=== PATIENT | female | born 1960 | race Caucasian/White ===

== ENCOUNTER 2017-05-11 19:32 | Inpatient (IN) | payer OTHER ==
[~2017-05-11] VITALS: Ht 165.1 cm; Wt 79.4 kg
[~2017-05-11 19:32] MED LIST: PERCOCET 5-3251 EACH PO
[2017-05-11 19:33] VITALS: BP 105/50
[2017-05-11] MEDS ORDERED: ONDANSETRON HCL4 M2 (19:42)
[2017-05-11] MEDS ORDERED: CIPRO500 MG (19:43)
[2017-05-11 20:05] LABS: BE -14.8 mmol/L (-2 to +3)
[2017-05-11 20:10] LABS: PCO2 18.1 mmHg (35.0-45.0)
[2017-05-11 20:11] LABS: PO2 389.4 mmHg (75.0-100.0)
[2017-05-11 20:20] LABS: MCH 46.7 pg (26.0-34.0); MCHC 38.8 g/dL (28.0-37.0); MCV 120.4 fL (80.0-100.0); MPV 9.9 fl. (7.2-11.1); NUCLEATED RBCS 3 /100WBC; PLATELET COUNT* 105 thou/uL (150-400); RBC 0.57 mil/uL (4.20-5.00); RDW-CV 13.8 % (10.5-14.5); WBC 23.1 thou/uL (4.0-11.0)
[2017-05-11 20:22] LABS: HEMATOCRIT 6.9 % (37.0-47.0); HEMOGLOBIN 2.7 gm/dL (12.0-15.0)
[2017-05-11 20:26] LABS: ANION GAP 23 mmol/L (7-16); BUN 11 mg/dL (7-18); CALCIUM 8.5 mg/dL (8.5-10.1); CHLORIDE 102 mmol/L (98-107); CO2 13 mmol/L (21-32); CREATININE 1.3 mg/dL (0.6-1.3); GLUCOSE 136 mg/dL (70-99); SODIUM 138 mmol/L (136-145)
[2017-05-11 20:29] LABS: URINE COLOR YELLOW
[2017-05-11 20:30] LABS: URINE BLOOD 3+ (Negative); URINE CLARITY SL CLOUDY; URINE GLUCOSE-RANDOM NEGATIVE (Negative); URINE KETONES NEGATIVE (Negative); URINE LEUKOCYTES-REFLEX NEGATIVE (Negative); URINE NITRITE-REFLEX NEGATIVE (Negative); URINE PROTEIN 2+ (Negative); URINE UROBILINOGEN 0.2 E.U./dl (0.2-1.0)
[2017-05-11 20:35] LABS: URINE BILIRUBIN 1+ (Negative)
[2017-05-11 20:36] LABS: ICTOTEST (BILI CONFIRMATORY) Negative (Negative)
[2017-05-11 20:37] LABS: ALBUMIN 2.6 g/dL (3.4-5.0); ALKALINE PHOSPHATASE 96 U/L (46-116); LIPASE 155 U/L (73-393); NT-PRO BRAIN NAT PEPTIDE 118 pg/mL (<300); SGOT 92 U/L (15-37); SGPT 50 U/L (30-65); TOTAL PROTEIN 6.7 g/dL (6.4-8.2); TROPONIN-I LEVEL <0.06 ng/mL (<0.06)
[2017-05-11 20:38] LABS: SQUAMOUS 0-3 Few /LPF (0-3)
[2017-05-11 20:39] LABS: AMORPHOUS URATES Few /LPF (None Seen); CASTS None Seen /LPF (None Seen); MUCUS 0-3 Light strn/LPF (None Seen); URINE RBC 0-2 Rare /HPF (0-2); URINE WBC-REFLEX None Seen /HPF (0-5)
[2017-05-11 20:43] LABS: ABSOLUTE EOSINOPHILS 0.9 thou/uL (0.0-0.7); ABSOLUTE LYMPHOCYTES 6.7 thou/uL (0.8-5.3); ABSOLUTE MONOCYTES 0.7 thou/uL (0.0-1.2); ABSOLUTE NEUTROPHILS 14.8 thou/uL (1.6-8.1); MACROCYTES 1+; METAMYELOCYTES 2 %; PLATELET ESTIMATE DECREASED; POLYCHROMASIA 1+
[2017-05-11 20:44] LABS: MICROCYTES 1+
[2017-05-11 21:02] LABS: AMP/METHAMP Negative (Negative); BARBITURATES POSITIVE (Negative); BENZODIAZEPINES Negative (Negative); COCAINE Negative (Negative); METHADONE Negative (Negative); OPIATES Negative (Negative); PCP Negative (Negative); THC Negative (Negative)
[2017-05-11 21:17] LABS: POTASSIUM 3.4 mmol/L (3.5-5.1); TOTAL BILIRUBIN 2.8 mg/dL (<0.1-1.0)
[2017-05-11 21:28] LABS: INR 1.2
[2017-05-11 21:53] LABS: HEMATOCRIT 5.2 % (37.0-47.0)
[2017-05-11 21:59] LABS: PCO2 18.7 mmHg (35.0-45.0); PO2 257.4 mmHg (75.0-100.0); pH 7.109 (7.340-7.450)
[2017-05-11 22:00] LABS: HCO3 5.8 mmol/L (22.0-26.0)
[2017-05-11 23:24] LABS: BE -23.7 mmol/L (-2 to +3); PCO2 23.5 mmHg (35.0-45.0)
[2017-05-11 23:29] LABS: HCO3 5.5 mmol/L (22.0-26.0); PO2 394.7 mmHg (75.0-100.0)
--- NOTE | 2017-05-11 23:37 | H ---
[address] [address] HISTORY AND PHYSICAL Name: DANIELLE BALL Room: [address] IN M.R.#: [id number] Admission: 05/11/17 Attend Phys: Avni Chowdhury, Discharge: 06/07/17 Date of : 60 Report #: [id number] THIS REPORT FOR: //name// CC: [facility] physician/PCP Meredith Alvarado ER VISIT NOTE AND ICU NOTE HISTORY OF PRESENT ILLNESS: This is a 57-year-old female who was hospitalized at [facility] in the [facility] on 05/09/2017 with pyelonephritis under the care of Dr. Avni Kunz. She was hydrated and given antibiotics, was admitted for further management. She was found to have evidence of sepsis, had a rash associated with ceftriaxone and it was changed to Cipro. She was discharged at approximately 11:30 this morning to go home. Apparently, later this evening, she began to be obtunded and was hypoxic. EMS was summoned and she had an O2 sat in the low 80s. She was given Narcan by EMS, with mild improvement and transported here to the closest facility. She was responsive to verbal stimuli after 2 mg of Narcan by EMS, improved to 98% SpO2 on the CPAP. She had significant altered mental status, minimally responsive and unable to give me much of a history. Her is present. PAST MEDICAL HISTORY: Significant for hiatal hernia with surgery correction in February of this year and history of cholecystectomy. FAMILY HISTORY: Significant for hypertension and obesity. SOCIAL HISTORY: Alcohol use is unknown at this time, is . Her is socially supportive. Former smoker, 30 years, one pack per day. REVIEW OF SYSTEMS: She denies fever, chills, congestion or headache. Somewhat short of breath. Denies abdominal pain, vomiting or diarrhea. Denies burning, urgency or frequency. Denies back pain. Denies tingling. She is weak. A 14-point review of systems is otherwise negative. PHYSICAL EXAMINATION: VITAL SIGNS: At 19:33, blood pressure 105/55, pulse 115, O2 sat was 99% on 15 liters. Weight 200 pounds. HEENT: She appears to have some scleral icterus. 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 Throat and pharynx are clear. Mucous membranes are moist. Head is atraumatic. LUNGS: Decreased breath sounds, without rhonchi or wheezing. CARDIOVASCULAR EXAMINATION: Tachycardic rhythm, without gallop, S3 or S4. ABDOMEN: Soft, obese and nontender. Bowel sounds are normal. EXTREMITIES: Show no cyanosis. Nontender. NEUROLOGIC: She was initially alert, became less responsive and was intubated. DIAGNOSTIC DATA: EKG shows minimal ST-segment [place] [address] HISTORY AND PHYSICAL Name: DANIELLE BALL Room: [address] IN [facility]#: [id number] Admission: 05/11/17 Attend Phys: Avni Chowdhury, Discharge: 06/07/17 Date of : 60 Report #: [id number] leads. Arterial blood gas; pO2 of 389, pCO2 of 18.1. Methemoglobin 2.9, carboxyhemoglobin 0.2. Lactic acid 14.1. Potassium 3.4, CO2 of 13, glucose 136, anion gap is 23. Bilirubin 2.8. AST 92. Albumin 2.6. White count 23.1, hemoglobin 2.7, MCV 120.4 and platelets 105,000. U/A with 2+ protein, 3+ blood, urine bacteria 10-30. A pH on blood gas 7.36, pCO2 is 18.1. Potassium 3.4, sodium 138, BUN 11 and creatinine 1.3. Alkaline phosphatase is 96. Troponin less than 0.06. ProBNP is 118. INR is pending. White count 23,100, hemoglobin 2.7, left shift with 40 segs, 22 bands and 1+ macrocytic cells. Platelets are decreased. C. diff toxin is pending. Urine toxicology is pending. Blood cultures x [address] from [facility] on 05/09/2017 showed multiple reactive lymph nodes; however a lymphoproliferative disorder such as lymphoma or metastatic disease could give a similar appearance. There were 2 small left lower lobe nodules present. Gallbladder was surgical absent. Comorbid conditions include osteoarthritis, sleep apnea, history of anemia, esophageal reflux disease, hypothyroidism and hyperlipidemia. She had a robot-assisted hiatal hernia repair on 03/07/2017, using Da [employer]. She had an upper endoscopy on 08/30/2014. White count on admission to [facility] was 19.3, hemoglobin 11.6 and platelets 247,000. Urinary specific gravity was greater than 1.030 with leukocyte esterase, negative with nitrite-positive urine. Venous lactic acid was 1.9 on admission to [facility]. Again, as above, the patient was dismissed earlier today and seen by Dr. Alvarado in the ER. I participated in the patient's care. I discussed the patient's care with Dr. Mahajan. ASSESSMENT: 1. Gram-negative severe sepsis with disseminated intravascular coagulation. 2. Urinary tract infection with pyelonephritis. 3. Severe sepsis. 4. Thrombocytopenia. 5. Severe anemia, likely hemolytic. 6. Severe lactic acidosis, indicative of severe sepsis. 7. Hypokalemia. 8. Respiratory failure. 9. Hypothermia. 10. Tachycardia. 11. Hypoxic respiratory failure, acute. 12. Altered mental status. 13. Gastroesophageal reflux disease. PLAN: Initially, the plan is to transfer to the [facility] on the [place]. However, if they are unable to accept the patient, we will admit her here after discussion with Dr. Mahajan and Dr. Alvarado. [place] [address] HISTORY AND PHYSICAL Name: DANIELLE BALL Room: [address]#: [id number] Admission: 05/11/17 Attend Phys: Avni Chowdhury, Discharge: 06/07/17 Date of : 60 Report #: [id number] Time spent with critical care for this patient is 1 hour and 40 minutes. plan iv broad spectrum iv antibiotics, if ok with ID, VANC, LEVAQUIN, GENT CONSULT ID., PULM, HEMATOLOGY, INTUBATED IN ER, CENTRAL LINE, IV PRESSORS <ELECTRONICALLY SIGNED> By: Avni Chowdhury MD 05/11/17 2337 2238 [id number] Jaylene Chowdhury MD /nt
[2017-05-11 23:59] VITALS: BP 88/50
[2017-05-12] VITALS (42 sets, daily range): BP systolic 69–160; BP diastolic 41–95
[2017-05-12 00:48] LABS: BASOPHILS 1.3 %
[2017-05-12 00:49] LABS: ABSOLUTE BASOPHILS 0.3 thou/uL (0.0-0.2); ABSOLUTE EOSINOPHILS 0.8 thou/uL (0.0-0.7); ABSOLUTE LYMPHOCYTES 3.8 thou/uL (0.8-5.3); ABSOLUTE MONOCYTES 0.4 thou/uL (0.0-1.2); EOSINOPHILS 3.8 %; LYMPHOCYTES 17.8 %; MCH 41.7 pg (26.0-34.0); MCHC 35.8 g/dL (28.0-37.0); MCV 116.6 fL (80.0-100.0); MONOCYTES 1.9 %; MPV 10.4 fl. (7.2-11.1); NUCLEATED RBCS 6 /100WBC; PLATELET COUNT* 52 thou/uL (150-400); POLYS 75.2 %; RBC 1.39 mil/uL (4.20-5.00); RDW-CV 15.4 % (10.5-14.5); WBC 21.2 thou/uL (4.0-11.0)
[2017-05-12 00:54] LABS: CALCIUM 7.1 mg/dL (8.5-10.1); CREATININE 1.5 mg/dL (0.6-1.3)
[2017-05-12 00:55] LABS: PROTIME 20.1 Seconds (9.20-11.50)
[2017-05-12 01:01] LABS: POTASSIUM 4.2 mmol/L (3.5-5.1)
[2017-05-12 01:02] LABS: HEMATOCRIT 16.2 % (37.0-47.0); HEMOGLOBIN 5.8 gm/dL (12.0-15.0); INR 2.1
[2017-05-12 06:24] LABS: BE -19.3 mmol/L (-2 to +3); PCO2 21.3 mmHg (35.0-45.0); PO2 113.8 mmHg (75.0-100.0)
[2017-05-12 06:30] LABS: HCO3 7.5 mmol/L (22.0-26.0); pH 7.166 (7.340-7.450)
[2017-05-12 10:19] LABS: POTASSIUM 5.6 mmol/L (3.5-5.1)
[2017-05-12 10:21] LABS: CREATININE 2.1 mg/dL (0.6-1.3)
[2017-05-12 10:23] LABS: CALCIUM 6.2 mg/dL (8.5-10.1)
[2017-05-12 10:25] LABS: MAGNESIUM 1.8 mg/dL (1.8-2.4); PHOSPHORUS* 5.9 mg/dL (2.5-4.9)
[2017-05-12 10:37] LABS: INR > 18.0; PROTIME > 210.1 Seconds (9.20-11.50)
--- NOTE | 2017-05-12 12:06 | EKG ---
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
[2017-05-12 15:03] LABS: BE -13.9 mmol/L (-2 to +3); pH 7.326 (7.340-7.450)
[2017-05-12 15:07] LABS: HCO3 10.2 mmol/L (22.0-26.0); PO2 138.6 mmHg (75.0-100.0)
[2017-05-12 15:10] LABS: ABSOLUTE BASOPHILS 0.2 thou/uL (0.0-0.2); ABSOLUTE LYMPHOCYTES 2.6 thou/uL (0.8-5.3); ABSOLUTE MONOCYTES 0.6 thou/uL (0.0-1.2); ABSOLUTE NEUTROPHILS 20.7 thou/uL (1.6-8.1); BASOPHILS 0.7 %; EOSINOPHILS 3.8 %; HEMATOCRIT 29.2 % (37.0-47.0); LYMPHOCYTES 10.4 %; MCH 33.9 pg (26.0-34.0); MCHC 38.1 g/dL (28.0-37.0); MONOCYTES 2.4 %; MPV 9.6 fl. (7.2-11.1); NUCLEATED RBCS 3 /100WBC; PLATELET COUNT* 58 thou/uL (150-400); POLYS 82.7 %; RBC 3.28 mil/uL (4.20-5.00); RDW-CV 14.8 % (10.5-14.5); WBC 25.1 thou/uL (4.0-11.0)
[2017-05-12 15:12] LABS: HEMOGLOBIN 11.1 gm/dL (12.0-15.0); MCV 89.2 fL (80.0-100.0)
[2017-05-12 15:26] LABS: CALCIUM 5.9 mg/dL (8.5-10.1)
[2017-05-12 15:27] LABS: POTASSIUM 4.8 mmol/L (3.5-5.1)
[2017-05-12 15:39] LABS: CREATININE 1.3 mg/dL (0.6-1.3)
[2017-05-12 15:44] LABS: PROTIME > 210.1 Seconds (9.20-11.50)
[2017-05-12 15:45] LABS: INR > 18.0
[2017-05-12 16:12] LABS: CREATININE 1.7 mg/dL (0.6-1.3)
[2017-05-12 16:13] LABS: CALCIUM 5.6 mg/dL (8.5-10.1)
[2017-05-12 16:20] LABS: HEMATOCRIT 28.7 % (37.0-47.0); HEMOGLOBIN 11.1 gm/dL (12.0-15.0)
[2017-05-12 16:21] LABS: POTASSIUM 4.8 mmol/L (3.5-5.1)
[2017-05-12 16:54] LABS: INR > 18.0; PROTIME > 210.1 Seconds (9.20-11.50)
[2017-05-12 20:56] LABS: HEMATOCRIT 26.3 % (37.0-47.0); HEMOGLOBIN 10.7 gm/dL (12.0-15.0); MCH 34.9 pg (26.0-34.0); MCHC 40.5 g/dL (28.0-37.0); MCV 86.2 fL (80.0-100.0); MPV 8.5 fl. (7.2-11.1); RBC 3.05 mil/uL (4.20-5.00); RDW-CV 15.4 % (10.5-14.5)
[2017-05-12 21:06] LABS: POTASSIUM 3.4 mmol/L (3.5-5.1)
[2017-05-12 21:07] LABS: CALCIUM 5.6 mg/dL (8.5-10.1)
[2017-05-12 21:11] LABS: PROTIME > 210.1 Seconds (9.20-11.50)
[2017-05-12 21:12] LABS: INR > 18.0
[2017-05-12 21:15] LABS: CREATININE 1.4 mg/dL (0.6-1.3)
[2017-05-13] VITALS (33 sets, daily range): BP systolic 81–132; BP diastolic 46–78
[2017-05-13 03:31] LABS: INR > 18.0; PROTIME > 210.1 Seconds (9.20-11.50)
[2017-05-13 04:05] LABS: ABSOLUTE BASOPHILS 0.1 thou/uL (0.0-0.2); ABSOLUTE EOSINOPHILS 1.6 thou/uL (0.0-0.7); ABSOLUTE LYMPHOCYTES 3.2 thou/uL (0.8-5.3); ABSOLUTE MONOCYTES 0.4 thou/uL (0.0-1.2); BASOPHILS 0.5 %; EOSINOPHILS 6.4 %; HEMOGLOBIN 11.1 gm/dL (12.0-15.0); LYMPHOCYTES 13.3 %; MCH 36.1 pg (26.0-34.0); MCHC 42.6 g/dL (28.0-37.0); MCV 84.9 fL (80.0-100.0); MONOCYTES 1.5 %; MPV 9.8 fl. (7.2-11.1); NUCLEATED RBCS 7 /100WBC; PLATELET COUNT* 57 thou/uL (150-400); POLYS 78.3 %; RBC 3.07 mil/uL (4.20-5.00); RDW-CV 15.1 % (10.5-14.5); WBC 24.4 thou/uL (4.0-11.0)
[2017-05-13 05:35] LABS: BE -1.4 mmol/L (-2 to +3); HCO3 22.8 mmol/L (22.0-26.0); pH 7.419 (7.340-7.450)
[2017-05-13 06:23] LABS: TROPONIN-I LEVEL 3.23 ng/mL (<0.06)
[2017-05-13 07:03] LABS: CREATININE 2.5 mg/dL (0.6-1.3); POTASSIUM 3.3 mmol/L (3.5-5.1)
[2017-05-13 07:06] LABS: BUN 19.2 mg/dL (7-18)
[2017-05-13 07:07] LABS: TOTAL BILIRUBIN 10.9 mg/dL (<0.1-1.0)
[2017-05-13 07:08] LABS: ALBUMIN 2.4 g/dL (3.4-5.0); TOTAL PROTEIN 4.8 g/dL (6.4-8.2)
[2017-05-13 07:09] LABS: CALCIUM 5.8 mg/dL (8.5-10.1)
[2017-05-13 07:17] LABS: MAGNESIUM 1.4 mg/dL (1.8-2.4)
--- NOTE | 2017-05-13 11:28 | CON ---
[address] [address] CONSULTATION Name: DANIELLE BALL Room: [address] IN M.R.#: [id number] Admission: 05/11/17 Attend Phys: Avni Chowdhury, Discharge: 06/07/17 Date of : 60 Report #: [id number] THIS REPORT FOR: //name// CC: [facility] physician/PCP Avni Chowdhury DATE OF SERVICE: 05/12/2017 TYPE OF CONSULTATION: Infectious Disease ATTENDING PHYSICIAN: Avni Chowdhury MD REASON FOR EVALUATION: Septic shock, DIC, likely hemolytic anemia. HISTORY OF PRESENT ILLNESS: Chart reviewed, the patient examined. This is a 57-year-old female without significant medical history who presented in extremis from home, although she had been hospitalized in different facility, was diagnosed with a complicated urinary tract infection, in fact had been discharged within 6 hours prior to presenting to the Emergency Room. It is known that she developed what appears to be hypersensitivity reaction to ceftriaxone in the hospital, she was discharged on Cipro. Shortly thereafter, apparently taking a single dose, she developed acute psychosis with intermittent levels of consciousness. On evaluation in the Emergency Room, she was found to have markedly elevated lactic acid greater than 14 and profoundly low hemoglobin at 2.7, this actually dropped to 2.0, hematocrit of initially 6.9. White count was 23.1, platelets were 105. There was some eosinophilia as well as lymphocytosis. Fibrinogen initially was 429. Chest x-ray was otherwise unremarkable. Creatinine was normal and total bilirubin of 2.8, mildly elevated hepatic transaminases. CT abdomen and pelvis showed suspected hepatic cysts, splenomegaly. CT neck showed some cervical adenopathy. Repeat fibrinogen had dropped from 429 to 146. She is intubated, seen in the ICU and she still has lactic acidemia at 12. Blood cultures are sterile thus far. She was given a dose of vancomycin and gentamicin. ALLERGIES: Listed to CEFTRIAXONE. CURRENT MEDICATIONS: Include vancomycin and propofol. PAST MEDICAL HISTORY: Known hiatal hernia, previous cholecystectomy. SOCIAL HISTORY: Former smoker. No ethanol. FAMILY HISTORY: Noncontributory. REVIEW OF SYSTEMS: [place] [address] CONSULTATION Name: DANIELLE BALL Room: [address]#: [id number] Admission: 05/11/17 Attend Phys: Avni Chowdhury, Discharge: 06/07/17 Date of : 60 Report #: [id number] PHYSICAL EXAMINATION: GENERAL: She is sedated, maintained on the vent. She is in a recumbent position, multiple tubes and catheters. She is not responsive. VITAL SIGNS: Temperature is 100.2, pulse 88, respirations 20, blood pressure 85/64. She is on dopamine. LUNGS: Somewhat diminished, otherwise clear. HEART: Seemed to be irregular, borderline tachycardic. I do not appreciate a murmur. ABDOMEN: Soft. There are no overt peritoneal signs. GENITOURINARY AND RECTAL: Deferred. Peripheral evidence of endocarditis. LABORATORY DATA: As described above. Blood cultures are sterile thus far. Most recent lactic acid is 4.0. Electrolytes: Sodium 138, potassium 5.6, felt to be hemolyzed specimen, chloride 104, and bicarbonate is 10. Anion gap is 24, BUN and creatinine 16 and 2.1. Amylase is 268. Estimated GFR of 24. Followup x-ray showed mild right-sided atelectasis. ASSESSMENT AND PLAN: Profound anemia, on an acute basis, likely DIC, may well have significant hemolysis, cannot exclude infectious cause, although she had extensive workup in the hospital just prior to this, presumed to have a urinary tract infection and was deemed stable enough to go home on oral antibiotics. I think in all likelihood, this is an adverse drug effect, perhaps due to the ciprofloxacin, certainly would avoid the quinolones. She has certainly experienced other multiorgan dysfunction, at this point, continue efforts to support her. Followup urinalysis was fairly unremarkable, glycoside since creatinine increased 1.3-2.1, most likely not directly related to the glycoside. We will continue the vancomycin. Await culture results. Thank you we will follow. <ELECTRONICALLY SIGNED> By: Сергей Barraza MD 05/13/17 1128 1132 [id number] Barraza MD /nt
--- NOTE | 2017-05-13 13:16 | CON ---
[address] [address] CONSULTATION Name: DANIELLE BALL Room: [address] IN M.R.#: [id number] Admission: 05/11/17 Attend Phys: Avni Chowdhury, Discharge: 06/07/17 Date of : 60 Report #: [id number] THIS REPORT FOR: //name// CC: [facility] physician/PCP Avni Chowdhury DATE OF SERVICE: 05/12/2017 CHIEF COMPLAINT: Respiratory failure. HISTORY OF PRESENT ILLNESS: The patient is a 57-year-old female whose information is taken from the current chart. Historically, it appears that [facility] what was presumed to be a urinary tract infection. She received Cipro as an antibiotic. She went home and did not feel well. As a result, she presented to the Emergency Room here with a chief complaint of altered mental status. She was initially hypoxemic with O2 saturations less than 70%. She was placed on BiPAP therapy. She was immediately resuscitated in the form of altered mental status, had to be intubated. She is transferred to the Intensive Care Unit. She was found to have significant numerous abnormal labs. See below. PAST MEDICAL HISTORY: Significant for recurrent UTIs, hiatal hernia, cholecystectomy. ALLERGIES: NOW INCLUDE CIPRO/QUINOLONE DRUGS. SOCIAL HISTORY: Not available. FAMILY HISTORY: Not available. REVIEW OF SYSTEMS: Not obtainable. The patient is intubated and sedated. PHYSICAL EXAMINATION: GENERAL APPEARANCE: The patient is intubated. She is on Levophed IV fluids. She is also getting IV propofol as a sedative type drip. A dialysis catheter has been inserted. She is currently getting hemodialysis as a result of an anuric state. The patient is sedated, intubated. Yanes catheter is inserted. SCD cuffs are in place. She has no G-tube. Hemodialysis catheter. A 57-year-old female who is markedly jaundiced. CURRENT VITAL SIGNS: Reveal blood pressure 99/71. Her mean arterial pressure 71, pulse rate 96 and regular, respiratory rate 27, temperature 100.2 degrees. Her weight is 203 pounds. HEENT: Head is atraumatic. Eyes: Pupils are round, equal and reactive. Sclerae are icteric at this time. Oral cavity appears moist at this time. NECK: No adenopathy. CHEST: Reveals coarse breath sounds, [place] [address] CONSULTATION Name: DANIELLE BALL Room: [address]#: [id number] Admission: 05/11/17 Attend Phys: Avni Chowdhury, Discharge: 06/07/17 Date of : 60 Report #: [id number] CARDIOVASCULAR: Regular rhythm. ABDOMEN: Obese without organomegaly or tenderness. EXTREMITIES: There is no edema. SKIN: No skin rashes. NEUROLOGIC: The patient is sedated, although withdraws from pain. LABORATORY DATA: Her initial hemoglobin on admission was 2.7, with a hematocrit of 6.9, white count was 23,000, platelets were estimated as decreased. Shortly thereafter, repeat H and H were performed, it was 2.0. She did receive some blood products on 05/12/2017 at 12:20 a.m. Hemoglobin was 5.8 and today at 1554, her hemoglobin is 11.1. The patient has received approximately a total of 6 units of packed red cells. She also received 3 FFP units. Drug screen was positive for barbiturates. Today at 1554, her electrolytes reveal sodium 139, potassium 4.8, chloride 102, CO2 of 15, BUN of 21, creatinine 1.7, glucose 129. EGFR 31. Her initial bilirubin was 2.8. ProBNP 118. Troponin is 0.06. Her most recent arterial blood gas at 1450 p.m. today was 7.33, pCO2 of 20, pO2 of 139, bicarbonate of 10, while on CMV of 14, tidal volume of 500, PEEP of 5, this is on 50% FiO2. She is on a bicarbonate drip. IMAGING STUDIES: CTA of the chest revealed a pericardial fluid of a limited nature. Negative for any evidence of pulmonary infarct. There were no lesions. Head was negative for any intracranial hemorrhaging. ASSESSMENT: 1. Acute hemolysis, resulting in abnormal labs as outlined above. 2. Hyperbilirubinemia secondary to the above. 3. Acute respiratory insufficiency requiring intubation. 4. ACUTE ALLERGIC REACTION TO QUINOLONE DRUGS, most likely. RECOMMENDATION: Follow up ABGs. Chest x-ray will need to be obtained to determine the position of the endotracheal tube. Initiate aerosol treatments. Hematology has been consulted. Steroids may be warranted at some point based on their decision regarding treatment of the hemolysis condition. The patient has been cultured up, follow those. Continue with current medical regimen otherwise. Follow up x-ray in the a.m. along with arterial blood gases as well. <ELECTRONICALLY SIGNED> By: Sanna Romo MD 05/13/17 1316 1849 [id number] Pride MD /nt
--- NOTE | 2017-05-13 13:48 | CON ---
[address] [address] CONSULTATION Name: DANIELLE BALL Room: [address] IN M.R.#: [id number] Admission: 05/11/17 Attend Phys: Avni Chowdhury, Discharge: 06/07/17 Date of : 60 Report #: [id number] THIS REPORT FOR: //name// CC: [facility] physician/PCP Avni Chowdhury DATE OF SERVICE: 05/12/2017 REQUESTING PHYSICIAN: Daniel Navarro DO. REASON FOR CONSULTATION: Severe acidosis and acute kidney injury. HISTORY OF PRESENT ILLNESS: The patient is a 57-year-old female with medical history significant for some gastritis and GERD. She apparently developed some symptoms of upper respiratory infection, not feeling well for 5 days prior to admission, was getting progressively worse, finally developed intractable nausea, vomiting, [facility]. Over there, they diagnosed her with urinary tract infection, pyelonephritis, gave her one dose of IV Rocephin and sent her home on p.o. ciprofloxacin. She was doing fine after the first dose of ciprofloxacin, shortly after that she developed some weakness, not feeling well, became unresponsive, was brought to the Emergency Room here, was found to have hemoglobin of 2 and her creatinine was 1.3, but she became anuric, went up to 15 and 21, potassium is 5.6. She had a pH of 7.10 dropped to 6.66. She is on bicarb drip, it is up to 7.16, but she is not making any urine and potassium is going up. She is acidotic, fluid overloaded and I was consulted. PAST MEDICAL HISTORY: GERD and overweight. SOCIAL HISTORY: No tobacco or alcohol abuse. MEDICATIONS: Prior to admission, none. Occasionally takes some PPIs. FAMILY HISTORY: No history of renal disease. REVIEW OF SYSTEMS: The patient is intubated, unresponsive. PHYSICAL EXAMINATION: VITAL SIGNS: Blood pressure 108/75, heart rate 93, respiratory rate 29, temperature 37.9. HEENT: Pupils round. NECK: Fatty. LUNGS: Coarse breath sounds. CARDIOVASCULAR: No rub. ABDOMEN: Obese. LOWER EXTREMITIES: [place] [address] CONSULTATION Name: DANIELLE BALL Room: [address]#: [id number] Admission: 05/11/17 Attend Phys: Avni Chowdhury, Discharge: 06/07/17 Date of : 60 Report #: [id number] LABORATORY REPORT: [place] [address], hemoglobin after transfusion is 5.2 and her platelet count is 52. Her INR is more than 18. Her PT is more than 210. Hematology, Dr. Mahajan examined the patient and his impression was hemolytic anemia, most likely due to a reaction to ciprofloxacin. From my standpoint, she has acute kidney injury. She is anuric. She is acidotic. She is fluid overloaded. She is developing hyperkalemia. She needs to have urgent dialysis; however, her INR is more than 18 now, so we are going to give her fresh frozen plasma and recheck it and if INR allows dialysis line, place dialysis line and put her on dialysis. Thank you very much for asking my opinion on acute kidney injury, hyperkalemia, metabolic acidosis in this patient. This is a critical patient. More than 1 hour spent. <ELECTRONICALLY SIGNED> By: Indiana Baxter MD 05/13/17 1348 1508 [id number] Garcia MD /[facility]
[2017-05-13 13:49] LABS: ALBUMIN 2.3 g/dL (3.4-5.0)
[2017-05-13 14:14] LABS: CALCIUM 6.5 mg/dL (8.5-10.1); CREATININE 2.2 mg/dL (0.6-1.3); PHOSPHORUS* 3.5 mg/dL (2.5-4.9)
[2017-05-13 14:17] LABS: POTASSIUM 3.8 mmol/L (3.5-5.1)
[2017-05-13 14:18] LABS: MPV 9.8 fl. (7.2-11.1); NUCLEATED RBCS 14 /100WBC; PLATELET COUNT* 60 thou/uL (150-400); RDW-CV 15.5 % (10.5-14.5)
[2017-05-13 14:45] LABS: POTASSIUM 3.6 mmol/L (3.5-5.1)
[2017-05-13 15:05] LABS: HEMOGLOBIN 8.9 gm/dL (12.0-15.0); RBC 3.03 mil/uL (4.20-5.00); WBC 26.9 thou/uL (4.0-11.0)
[2017-05-13 15:06] LABS: HEMATOCRIT 25.2 % (37.0-47.0); MCV 83.3 fL (80.0-100.0)
[2017-05-13 15:07] LABS: MCH 29.4 pg (26.0-34.0); MCHC 35.3 g/dL (28.0-37.0)
[2017-05-13 15:11] LABS: ABSOLUTE EOSINOPHILS 2.4 thou/uL (0.0-0.7); ABSOLUTE LYMPHOCYTES 1.1 thou/uL (0.8-5.3); ABSOLUTE NEUTROPHILS 23.4 thou/uL (1.6-8.1); METAMYELOCYTES 3 %
[2017-05-13 15:12] LABS: LARGE PLATELETS FEW; PLATELET ESTIMATE DECREASED
[2017-05-13 15:13] LABS: ANISOCYTOSIS 1+
[2017-05-13 16:05] LABS: CREATININE 2.6 mg/dL (0.6-1.3)
[2017-05-13 16:06] LABS: CALCIUM 6.1 mg/dL (8.5-10.1); TOTAL BILIRUBIN 7.9 mg/dL (<0.1-1.0); TOTAL PROTEIN 4.7 g/dL (6.4-8.2)
[2017-05-13 16:07] LABS: ALBUMIN 2.2 g/dL (3.4-5.0)
--- NOTE | 2017-05-13 16:09 | EKG ---
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: : 1960 Requested By: Frances Case Order Number: [id number] Dianelys MD: Rhys Dukes Measurements Intervals [place] Rate: 97 P: 87 AR: 134 QRS: -7 QRSD: 87 T: 34 QT: 374 QTc: 475 Interpretive Statements Sinus rhythm Low voltage, extremity and precordial leads Compared to ECG 05/11/2017 20:06:41 Low QRS voltage now present Electronically Signed On 05-13-2017 16:08:44 RISK AND INSURANCE CONSULTANT by Rhys Dukes [email or web address] <ELECTRONICALLY SIGNED> By: Rhys Dukes MD, [facility] 05/13/17 1608 1243 1243 Rhys Dukes MD, [facility] /EPI
[2017-05-13 21:58] LABS: INR 2.1; PROTIME 23.8 Seconds (9.20-11.50)
[2017-05-14] VITALS (37 sets, daily range): BP systolic 86–153; BP diastolic 50–87
[2017-05-14 01:03] LABS: INR 1.5
[2017-05-14 01:06] LABS: PROTIME 18.3 Seconds (9.20-11.50)
[2017-05-14 04:00] LABS: HEMOGLOBIN 8.3 gm/dL (12.0-15.0); MCV 85.1 fL (80.0-100.0); MPV 11.9 fl. (7.2-11.1); NUCLEATED RBCS 16 /100WBC; PLATELET COUNT* 68 thou/uL (150-400); RBC 2.89 mil/uL (4.20-5.00); RDW-CV 15.2 % (10.5-14.5); WBC 26.5 thou/uL (4.0-11.0)
[2017-05-14 04:07] LABS: HEMATOCRIT 24.6 % (37.0-47.0); MCH 28.7 pg (26.0-34.0); MCHC 33.8 g/dL (28.0-37.0)
[2017-05-14 04:31] LABS: CREATININE 3.3 mg/dL (0.6-1.3); DIRECT BILIRUBIN 5.2 mg/dL (<0.1-0.3); MAGNESIUM 1.7 mg/dL (1.8-2.4); TOTAL BILIRUBIN 7.8 mg/dL (<0.1-1.0)
[2017-05-14 04:32] LABS: ALBUMIN 2.4 g/dL (3.4-5.0); TOTAL PROTEIN 5.2 g/dL (6.4-8.2)
[2017-05-14 04:59] LABS: ABSOLUTE EOSINOPHILS 1.6 thou/uL (0.0-0.7); ABSOLUTE LYMPHOCYTES 1.3 thou/uL (0.8-5.3); ABSOLUTE MONOCYTES 0.8 thou/uL (0.0-1.2); ABSOLUTE NEUTROPHILS 22.8 thou/uL (1.6-8.1); ANISOCYTOSIS 1+; PLATELET ESTIMATE DECREASED; POIKILOCYTOSIS 1+
[2017-05-14 06:34] LABS: BE 7.3 mmol/L (-2 to +3); HCO3 31.9 mmol/L (22.0-26.0); PCO2 46.7 mmHg (35.0-45.0); PO2 79.2 mmHg (75.0-100.0); pH 7.453 (7.340-7.450)
[2017-05-14 14:22] LABS: POTASSIUM 4.2 mmol/L (3.5-5.1)
[2017-05-14 14:46] LABS: CREATININE 2.6 mg/dL (0.6-1.3)
[2017-05-14 14:48] LABS: CALCIUM 6.7 mg/dL (8.5-10.1)
[2017-05-14 15:42] LABS: INR 1.4; PROTIME 17.5 Seconds (9.20-11.50)
[2017-05-14 16:30] LABS: MCH 29.5 pg (26.0-34.0); MCV 83.3 fL (80.0-100.0); RBC 2.88 mil/uL (4.20-5.00); RDW-CV 14.9 % (10.5-14.5); WBC 28.7 thou/uL (4.0-11.0)
--- NOTE | 2017-05-14 18:17 | 2DMMODE ---
[place] [address] 2 D/M-MODE ECHOCARDIOGRAM Name: DANIELLE BALL Room: [address] IN [facility]#: [id number] Admission: 05/11/17 Attend Phys: Avni Mesa Discharge: 06/07/17 Date of : 60 Date of Service: 05/14/17 1816 Report #: [id number] THIS REPORT FOR: //name// APPROVED REPORT Study performed: 05/13/2017 12:26:14 EXAM: Comprehensive 2D, Doppler, and color-flow Echocardiogram Patient Location: In-Patient Room #: 006 Status: routine BSA: 1.93 HR: 98 bpm BP: 91/47 mmHg Rhythm: NSR Other Information Study Quality: Good Indications Sepsis 2D Dimensions LVEF(%): 78.72 (>50%) IVSd: 12.23 (7-11mm) LVOT Diam: 20.95 (18-24mm) LVDd: 46.81 mm PWd: 13.42 (7-11mm) Ascending Ao: 30.34 (22-36mm) LVDs: 24.66 (25-40mm) Aortic Root: 28.46 mm Rosas's LVEF: 78.72 % Volumes Left Atrial Volume (Systole) LA ESV Index: 28.50 mL/m2 Aortic Valve AoV Peak Immanuel.: 1.91 m/s AO Peak Gr.: 14.54 mmHg LVOT Max P.82 mmHg AO Mean Gr.: 7.70 mmHg LVOT Mean P.00 mmHg LVOT Max V: 1.31 m/s AO V2 VTI: 29.50 cm LVOT Mean V: 0.78 m/s DANO (VTI): 2.69 cm2 LVOT V1 VTI: 23.03 cm Mitral Valve E/A Ratio: 1.10 [place] [address] 2 D/M-MODE ECHOCARDIOGRAM Name: DANIELLE BALL Room: [address]R.#: [id number] Admission: 05/11/17 Attend Phys: Avni Mesa Discharge: 06/07/17 Date of : 60 Date of Service: 05/14/17 1816 Report #: [id number] MV Decel. Time: 176.12 ms MV E Max Immanuel.: 0.79 m/s MV PHT: 51.07 ms MVA (PHT): 4.31 cm2 TDI E/Lateral E': 6.08 E/Medial E': 7.90 Medial E' Immanuel.: 0.10 m/s Lateral E' Immanuel.: 0.13 m/s Pulmonary Valve PV Peak Immanuel.: 1.27 m/s PV Peak Gr.: 6.46 mmHg Tricuspid Valve TR Peak Gr.: 32.25 mmHg RVSP: 37.00 mmHg Left Ventricle The left ventricle is normal size. There is normal LV segmental wall motion. There is normal left ventricular wall thickness Left ventricular systolic function is normal. The left ventricular ejection fraction is within the normal range. LVEF is 60-65%. The left ventricular diastolic function is normal. Right Ventricle The right ventricle is normal size. The right ventricular systolic function is normal. Atria The left atrium size is normal. The right atrium size is normal. Aortic Valve The aortic valve is normal in structure. No aortic regurgitation is present. There is no aortic valvular stenosis. Mitral Valve The mitral valve is normal in structure. Trace mitral regurgitation. No evidence of mitral valve stenosis. Tricuspid Valve The tricuspid valve is normal in structure. Mild tricuspid regurgitation. The RVSP is 35-40 mmHg. Pulmonic Valve The pulmonary valve is normal in structure. [place] [address] 2 D/M-MODE ECHOCARDIOGRAM Name: DANIELLE BALL Room: [address] IN M.R.#: [id number] Admission: 05/11/17 Attend Phys: Avni Mesa Discharge: 06/07/17 Date of : 60 Date of Service: 05/14/17 1816 Report #: [id number] Great Vessels The aortic root is normal in size. IVC is normal in size and collapses with >50% inspiration Pericardium There is no pericardial effusion. <Conclusion> The left ventricle is normal size. There is normal left ventricular wall thickness Left ventricular systolic function is normal. The left ventricular ejection fraction is within the normal range. LVEF is 60-65%. The left ventricular diastolic function is normal. The right ventricle is normal size. The left atrium size is normal. The aortic valve is normal in structure. The mitral valve is normal in structure. Trace mitral regurgitation. The tricuspid valve is normal in structure. Mild tricuspid regurgitation. The RVSP is 35-40 mmHg. IVC is normal in size and collapses with >50% inspiration There is no pericardial effusion. There is normal LV segmental wall motion. <ELECTRONICALLY SIGNED> By: Rhys Dukes MD, FACC 05/14/171815 15 15 Rhys Dukes MD, FACC /INF
[2017-05-14 18:20] LABS: HEMOGLOBIN 8.5 gm/dL (12.0-15.0)
[2017-05-14 18:24] LABS: MCHC 35.4 g/dL (28.0-37.0)
[2017-05-14 20:26] LABS: POTASSIUM 4.4 mmol/L (3.5-5.1)
[2017-05-14 21:30] LABS: MCV 83.2 fL (80.0-100.0); MPV 10.1 fl. (7.2-11.1); RBC 2.95 mil/uL (4.20-5.00); RDW-CV 15.2 % (10.5-14.5); WBC 27.2 thou/uL (4.0-11.0)
[2017-05-14 21:46] LABS: CREATININE 2.3 mg/dL (0.6-1.3)
[2017-05-14 21:54] LABS: CALCIUM 7.4 mg/dL (8.5-10.1)
[2017-05-14 22:41] LABS: HEMOGLOBIN 8.5 gm/dL (12.0-15.0)
[2017-05-14 22:45] LABS: HEMATOCRIT 24.5 % (37.0-47.0)
[2017-05-14 22:46] LABS: MCH 28.8 pg (26.0-34.0)
[2017-05-14 22:47] LABS: MCHC 34.8 g/dL (28.0-37.0)
[2017-05-15] VITALS (36 sets, daily range): BP systolic 88–139; BP diastolic 51–86
[2017-05-15 01:23] LABS: POTASSIUM 4.6 mmol/L (3.5-5.1)
[2017-05-15 01:24] LABS: CREATININE 2.1 mg/dL (0.6-1.3)
[2017-05-15 01:25] LABS: CALCIUM 7.6 mg/dL (8.5-10.1); MAGNESIUM 1.8 mg/dL (1.8-2.4); PHOSPHORUS* 3.2 mg/dL (2.5-4.9)
[2017-05-15 04:04] LABS: BE 6.3 mmol/L (-2 to +3); PCO2 46.2 mmHg (35.0-45.0); PO2 99.6 mmHg (75.0-100.0); pH 7.445 (7.340-7.450)
[2017-05-15 05:35] LABS: POTASSIUM 4.4 mmol/L (3.5-5.1)
[2017-05-15 05:36] LABS: CALCIUM 7.3 mg/dL (8.5-10.1); CREATININE 1.9 mg/dL (0.6-1.3); TOTAL BILIRUBIN 6.1 mg/dL (<0.1-1.0)
[2017-05-15 05:37] LABS: ALBUMIN 2.2 g/dL (3.4-5.0); TOTAL PROTEIN 4.5 g/dL (6.4-8.2)
[2017-05-15 05:41] LABS: CREATININE 1.9 mg/dL (0.6-1.3); POTASSIUM 4.4 mmol/L (3.5-5.1)
[2017-05-15 05:42] LABS: CALCIUM 7.3 mg/dL (8.5-10.1); MAGNESIUM 1.7 mg/dL (1.8-2.4); PHOSPHORUS* 3.5 mg/dL (2.5-4.9)
[2017-05-15 06:28] LABS: HEMATOCRIT 22.8 % (37.0-47.0); HEMOGLOBIN 8.3 gm/dL (12.0-15.0); MCH 31.1 pg (26.0-34.0); MCHC 36.5 g/dL (28.0-37.0); MCV 85.3 fL (80.0-100.0); MPV 10.7 fl. (7.2-11.1); NUCLEATED RBCS 13 /100WBC; RBC 2.67 mil/uL (4.20-5.00); RDW-CV 14.8 % (10.5-14.5); WBC 29.6 thou/uL (4.0-11.0)
[2017-05-15 06:29] LABS: PLATELET COUNT* 47 thou/uL (150-400)
[2017-05-15 07:23] LABS: ABSOLUTE LYMPHOCYTES 0.9 thou/uL (0.8-5.3); ABSOLUTE MONOCYTES 1.8 thou/uL (0.0-1.2); ABSOLUTE NEUTROPHILS 26.9 thou/uL (1.6-8.1); PLATELET ESTIMATE DECREASED
[2017-05-15 07:24] LABS: ANISOCYTOSIS 1+; POIKILOCYTOSIS 1+; POLYCHROMASIA Occasional
[2017-05-15 08:38] LABS: INR 1.3; PROTIME 16.5 Seconds (9.20-11.50)
[2017-05-15 08:48] LABS: HEMOGLOBIN 8.9 gm/dL (12.0-15.0)
[2017-05-15 08:50] LABS: HEMATOCRIT 24.8 % (37.0-47.0); MCH 30.8 pg (26.0-34.0); MCHC 35.9 g/dL (28.0-37.0); MCV 85.8 fL (80.0-100.0); RBC 2.89 mil/uL (4.20-5.00); RDW-CV 15.1 % (10.5-14.5); WBC 33.3 thou/uL (4.0-11.0)
[2017-05-15 08:54] LABS: INR 1.3; PROTIME 12.6 Seconds (9.20-11.50)
[2017-05-15 08:58] LABS: CALCIUM 7.8 mg/dL (8.5-10.1); CREATININE 1.7 mg/dL (0.6-1.3); MAGNESIUM 1.8 mg/dL (1.8-2.4); PHOSPHORUS* 2.8 mg/dL (2.5-4.9); POTASSIUM 4.7 mmol/L (3.5-5.1)
[2017-05-15 09:34] LABS: HEPATITIS B SURFACE AG NEGATIVE
[2017-05-15 16:05] LABS: HEMOGLOBIN 9.1 gm/dL (12.0-15.0); MPV 10.3 fl. (7.2-11.1); RBC 3.03 mil/uL (4.20-5.00); RDW-CV 14.9 % (10.5-14.5)
[2017-05-15 16:06] LABS: HEMATOCRIT 25.6 % (37.0-47.0); MCHC 35.5 g/dL (28.0-37.0); MCV 84.6 fL (80.0-100.0); WBC 35.1 thou/uL (4.0-11.0)
[2017-05-15 16:14] LABS: CALCIUM 8.2 mg/dL (8.5-10.1); CREATININE 1.6 mg/dL (0.6-1.3); MAGNESIUM 1.9 mg/dL (1.8-2.4); PHOSPHORUS* 2.9 mg/dL (2.5-4.9); POTASSIUM 4.8 mmol/L (3.5-5.1)
[2017-05-15 20:33] LABS: HEMOGLOBIN 9.3 gm/dL (12.0-15.0); MCH 29.8 pg (26.0-34.0)
[2017-05-15 20:35] LABS: HEMATOCRIT 26.3 % (37.0-47.0); MCHC 35.2 g/dL (28.0-37.0); MCV 84.6 fL (80.0-100.0); MPV 10.5 fl. (7.2-11.1); RBC 3.12 mil/uL (4.20-5.00); RDW-CV 14.9 % (10.5-14.5); WBC 34.7 thou/uL (4.0-11.0)
[2017-05-15 20:49] LABS: CREATININE 1.5 mg/dL (0.6-1.3); MAGNESIUM 1.9 mg/dL (1.8-2.4); PHOSPHORUS* 3.1 mg/dL (2.5-4.9)
[2017-05-15 21:00] LABS: APTT 24.3 Seconds (25.0-31.3); INR 1.3; PROTIME 12.8 Seconds (9.20-11.50)
[2017-05-16] VITALS (30 sets, daily range): BP systolic 94–150; BP diastolic 47–85
[2017-05-16 00:53] LABS: HEMATOCRIT 26.5 % (37.0-47.0); HEMOGLOBIN 9.4 gm/dL (12.0-15.0); MCV 86.4 fL (80.0-100.0)
[2017-05-16 00:55] LABS: MCH 30.6 pg (26.0-34.0); MCHC 35.5 g/dL (28.0-37.0); MPV 10.3 fl. (7.2-11.1); RBC 3.07 mil/uL (4.20-5.00); WBC 34.2 thou/uL (4.0-11.0)
[2017-05-16 01:03] LABS: CALCIUM 7.8 mg/dL (8.5-10.1); CREATININE 1.3 mg/dL (0.6-1.3); MAGNESIUM 1.7 mg/dL (1.8-2.4); PHOSPHORUS* 2.8 mg/dL (2.5-4.9); POTASSIUM 5.2 mmol/L (3.5-5.1)
[2017-05-16 05:24] LABS: HEMATOCRIT 24.8 % (37.0-47.0); HEMOGLOBIN 8.9 gm/dL (12.0-15.0); MCH 30.6 pg (26.0-34.0); MCHC 35.7 g/dL (28.0-37.0); MCV 85.8 fL (80.0-100.0); MPV 10.2 fl. (7.2-11.1); NUCLEATED RBCS 10 /100WBC; RDW-CV 14.8 % (10.5-14.5); WBC 31.2 thou/uL (4.0-11.0)
[2017-05-16 05:41] LABS: PLATELET COUNT* 40 thou/uL (150-400)
[2017-05-16 05:44] LABS: MAGNESIUM 1.9 mg/dL (1.8-2.4); PHOSPHORUS* 2.6 mg/dL (2.5-4.9)
[2017-05-16 05:57] LABS: ALBUMIN 2.1 g/dL (3.4-5.0); CREATININE 1.3 mg/dL (0.6-1.3); POTASSIUM 4.9 mmol/L (3.5-5.1); TOTAL BILIRUBIN 4.9 mg/dL (<0.1-1.0); TOTAL PROTEIN 5.7 g/dL (6.4-8.2)
[2017-05-16 06:13] LABS: ABSOLUTE BASOPHILS 0.3 thou/uL (0.0-0.2); ABSOLUTE LYMPHOCYTES 1.6 thou/uL (0.8-5.3); ABSOLUTE MONOCYTES 1.9 thou/uL (0.0-1.2); ABSOLUTE NEUTROPHILS 27.5 thou/uL (1.6-8.1); PLATELET ESTIMATE DECREASED; POLYCHROMASIA 1+; TOXIC GRANULATION Occasional
[2017-05-16 06:14] LABS: ANISOCYTOSIS 1+; POIKILOCYTOSIS 1+
[2017-05-16 06:41] LABS: BE 3.6 mmol/L (-2 to +3); HCO3 27.7 mmol/L (22.0-26.0); PCO2 39.8 mmHg (35.0-45.0); PO2 93.8 mmHg (75.0-100.0)
[2017-05-16 08:31] LABS: MCH 30.4 pg (26.0-34.0); MCHC 35.8 g/dL (28.0-37.0); MCV 84.7 fL (80.0-100.0); MPV 10.7 fl. (7.2-11.1); RBC 2.95 mil/uL (4.20-5.00); WBC 29.9 thou/uL (4.0-11.0)
[2017-05-16 08:38] LABS: CALCIUM 8.3 mg/dL (8.5-10.1); CREATININE 1.4 mg/dL (0.6-1.3); MAGNESIUM 1.9 mg/dL (1.8-2.4); PHOSPHORUS* 2.1 mg/dL (2.5-4.9); POTASSIUM 4.9 mmol/L (3.5-5.1)
[2017-05-16 09:52] LABS: APTT 22.9 Seconds (25.0-31.3); INR 1.3; PROTIME 12.6 Seconds (9.20-11.50)
[2017-05-16 12:30] LABS: HEMATOCRIT 25.5 % (37.0-47.0); HEMOGLOBIN 8.7 gm/dL (12.0-15.0); MCH 29.5 pg (26.0-34.0); MCHC 34.2 g/dL (28.0-37.0); MCV 86.2 fL (80.0-100.0); MPV 11.3 fl. (7.2-11.1); RBC 2.95 mil/uL (4.20-5.00); RDW-CV 15.1 % (10.5-14.5); WBC 29.3 thou/uL (4.0-11.0)
[2017-05-16 12:41] LABS: CALCIUM 8.3 mg/dL (8.5-10.1); CREATININE 1.3 mg/dL (0.6-1.3); MAGNESIUM 1.8 mg/dL (1.8-2.4); PHOSPHORUS* 2.1 mg/dL (2.5-4.9); POTASSIUM 4.8 mmol/L (3.5-5.1)
[2017-05-16 16:43] LABS: HEMATOCRIT 25.1 % (37.0-47.0); HEMOGLOBIN 8.8 gm/dL (12.0-15.0); MCHC 35.1 g/dL (28.0-37.0); MCV 85.6 fL (80.0-100.0); MPV 9.8 fl. (7.2-11.1); RBC 2.94 mil/uL (4.20-5.00); RDW-CV 14.8 % (10.5-14.5); WBC 27.5 thou/uL (4.0-11.0)
[2017-05-16 16:56] LABS: CALCIUM 8.4 mg/dL (8.5-10.1); CREATININE 1.3 mg/dL (0.6-1.3); MAGNESIUM 1.9 mg/dL (1.8-2.4); PHOSPHORUS* 2.3 mg/dL (2.5-4.9); POTASSIUM 4.7 mmol/L (3.5-5.1)
[2017-05-16 20:14] LABS: HEMOGLOBIN 8.7 gm/dL (12.0-15.0)
[2017-05-16 20:16] LABS: HEMATOCRIT 25.2 % (37.0-47.0)
[2017-05-16 20:21] LABS: MCH 29.6 pg (26.0-34.0); MCHC 34.6 g/dL (28.0-37.0); MCV 85.6 fL (80.0-100.0); MPV 10.8 fl. (7.2-11.1); RBC 2.94 mil/uL (4.20-5.00); RDW-CV 14.7 % (10.5-14.5); WBC 26.1 thou/uL (4.0-11.0)
[2017-05-16 20:29] LABS: CALCIUM 8.2 mg/dL (8.5-10.1); CREATININE 1.3 mg/dL (0.6-1.3); MAGNESIUM 1.8 mg/dL (1.8-2.4); PHOSPHORUS* 2.1 mg/dL (2.5-4.9); POTASSIUM 4.6 mmol/L (3.5-5.1)
[2017-05-16 20:30] LABS: APTT 22.9 Seconds (25.0-31.3); INR 1.4; PROTIME 13.8 Seconds (9.20-11.50)
[2017-05-17] VITALS (48 sets, daily range): BP systolic 90–135; BP diastolic 53–76
[2017-05-17 00:34] LABS: HEMATOCRIT 24.2 % (37.0-47.0); HEMOGLOBIN 8.3 gm/dL (12.0-15.0)
[2017-05-17 00:35] LABS: MCH 29.7 pg (26.0-34.0); MCHC 34.5 g/dL (28.0-37.0); MPV 11.3 fl. (7.2-11.1); RBC 2.81 mil/uL (4.20-5.00); RDW-CV 14.9 % (10.5-14.5)
[2017-05-17 00:42] LABS: CREATININE 1.3 mg/dL (0.6-1.3); MAGNESIUM 1.8 mg/dL (1.8-2.4); PHOSPHORUS* 2.1 mg/dL (2.5-4.9); POTASSIUM 4.2 mmol/L (3.5-5.1)
[2017-05-17 05:13] LABS: ABSOLUTE MONOCYTES 1.1 thou/uL (0.0-1.2); MONOCYTES 5.6 %; RBC 2.74 mil/uL (4.20-5.00)
[2017-05-17 05:14] LABS: ABSOLUTE EOSINOPHILS 0.3 thou/uL (0.0-0.7); ABSOLUTE LYMPHOCYTES 2.6 thou/uL (0.8-5.3); ABSOLUTE NEUTROPHILS 14.9 thou/uL (1.6-8.1); BASOPHILS 0.1 %; EOSINOPHILS 1.6 %; HEMATOCRIT 23.7 % (37.0-47.0); HEMOGLOBIN 8.2 gm/dL (12.0-15.0); LYMPHOCYTES 13.6 %; MCHC 34.8 g/dL (28.0-37.0); MCV 86.3 fL (80.0-100.0); MPV 10.4 fl. (7.2-11.1); NUCLEATED RBCS 14 /100WBC; POLYS 79.1 %; RDW-CV 14.8 % (10.5-14.5); WBC 18.8 thou/uL (4.0-11.0)
[2017-05-17 05:32] LABS: PLATELET COUNT* 37 thou/uL (150-400)
[2017-05-17 05:50] LABS: CALCIUM 7.9 mg/dL (8.5-10.1); CREATININE 1.3 mg/dL (0.6-1.3); MAGNESIUM 1.8 mg/dL (1.8-2.4); POTASSIUM 4.1 mmol/L (3.5-5.1); TOTAL BILIRUBIN 3.7 mg/dL (<0.1-1.0); TOTAL PROTEIN 5.5 g/dL (6.4-8.2)
[2017-05-17 05:52] LABS: PCO2 42.8 mmHg (35.0-45.0)
[2017-05-17 05:54] LABS: BE 3.7 mmol/L (-2 to +3); HCO3 28.2 mmol/L (22.0-26.0); PO2 133.8 mmHg (75.0-100.0)
[2017-05-17 08:47] LABS: HEMATOCRIT 24.6 % (37.0-47.0); HEMOGLOBIN 8.5 gm/dL (12.0-15.0); MCH 29.8 pg (26.0-34.0); MCV 86.5 fL (80.0-100.0); RBC 2.84 mil/uL (4.20-5.00)
[2017-05-17 08:48] LABS: MCHC 34.5 g/dL (28.0-37.0); MPV 10.8 fl. (7.2-11.1); WBC 18.6 thou/uL (4.0-11.0)
[2017-05-17 08:54] LABS: APTT 23.1 Seconds (25.0-31.3); INR 1.3; PROTIME 13.1 Seconds (9.20-11.50)
[2017-05-17 08:56] LABS: CALCIUM 8.3 mg/dL (8.5-10.1); CREATININE 1.3 mg/dL (0.6-1.3); MAGNESIUM 1.9 mg/dL (1.8-2.4); PHOSPHORUS* 1.9 mg/dL (2.5-4.9); POTASSIUM 4.2 mmol/L (3.5-5.1)
[2017-05-17 12:43] LABS: HEMOGLOBIN 8.9 gm/dL (12.0-15.0); MCH 29.9 pg (26.0-34.0); MCHC 34.1 g/dL (28.0-37.0); MCV 87.7 fL (80.0-100.0)
[2017-05-17 12:44] LABS: HEMATOCRIT 26.1 % (37.0-47.0); MPV 11.4 fl. (7.2-11.1); RBC 2.97 mil/uL (4.20-5.00); RDW-CV 15.1 % (10.5-14.5); WBC 19.1 thou/uL (4.0-11.0)
[2017-05-17 16:41] LABS: HEMOGLOBIN 9.2 gm/dL (12.0-15.0)
[2017-05-17 16:44] LABS: HEMATOCRIT 26.5 % (37.0-47.0); MCH 30.2 pg (26.0-34.0); MCHC 34.6 g/dL (28.0-37.0); MCV 87.2 fL (80.0-100.0); MPV 12.9 fl. (7.2-11.1); RBC 3.03 mil/uL (4.20-5.00); RDW-CV 15.2 % (10.5-14.5); WBC 18.6 thou/uL (4.0-11.0)
[2017-05-17 16:53] LABS: CALCIUM 8.5 mg/dL (8.5-10.1); CREATININE 1.4 mg/dL (0.6-1.3); MAGNESIUM 1.8 mg/dL (1.8-2.4); PHOSPHORUS* 1.7 mg/dL (2.5-4.9); POTASSIUM 4.6 mmol/L (3.5-5.1)
[2017-05-17 20:49] LABS: HEMOGLOBIN 9.1 gm/dL (12.0-15.0); MCH 30.3 pg (26.0-34.0); RBC 2.99 mil/uL (4.20-5.00)
[2017-05-17 20:51] LABS: HEMATOCRIT 26.2 % (37.0-47.0); MCHC 34.6 g/dL (28.0-37.0); MCV 87.5 fL (80.0-100.0); MPV 11.2 fl. (7.2-11.1); RDW-CV 15.2 % (10.5-14.5); WBC 17.1 thou/uL (4.0-11.0)
[2017-05-17 21:22] LABS: CALCIUM 8.6 mg/dL (8.5-10.1); CREATININE 1.4 mg/dL (0.6-1.3); MAGNESIUM 1.8 mg/dL (1.8-2.4); PHOSPHORUS* 1.8 mg/dL (2.5-4.9); POTASSIUM 4.6 mmol/L (3.5-5.1)
[2017-05-18] VITALS (66 sets, daily range): BP systolic 89–131; BP diastolic 50–611
[2017-05-18 00:39] LABS: HEMATOCRIT 26.3 % (37.0-47.0); HEMOGLOBIN 9.2 gm/dL (12.0-15.0)
[2017-05-18 00:41] LABS: ABSOLUTE LYMPHOCYTES 2.2 thou/uL (0.8-5.3); ABSOLUTE MONOCYTES 0.8 thou/uL (0.0-1.2); ABSOLUTE NEUTROPHILS 11.8 thou/uL (1.6-8.1); EOSINOPHILS 6.1 %; LYMPHOCYTES 13.8 %; MCH 30.5 pg (26.0-34.0); MCHC 34.9 g/dL (28.0-37.0); MCV 87.5 fL (80.0-100.0); MONOCYTES 5.2 %; MPV 10.9 fl. (7.2-11.1); NUCLEATED RBCS 0 /100WBC; POLYS 74.9 %; WBC 15.8 thou/uL (4.0-11.0)
[2017-05-18 00:43] LABS: PLATELET COUNT* 43 thou/uL (150-400)
[2017-05-18 01:28] LABS: CALCIUM 8.6 mg/dL (8.5-10.1); CREATININE 1.4 mg/dL (0.6-1.3); MAGNESIUM 1.8 mg/dL (1.8-2.4); PHOSPHORUS* 1.9 mg/dL (2.5-4.9); POTASSIUM 4.4 mmol/L (3.5-5.1); TOTAL BILIRUBIN 3.7 mg/dL (<0.1-1.0); TOTAL PROTEIN 5.6 g/dL (6.4-8.2)
[2017-05-18 04:51] LABS: RBC 2.98 mil/uL (4.20-5.00)
[2017-05-18 04:52] LABS: HEMATOCRIT 26.1 % (37.0-47.0); MCH 30.1 pg (26.0-34.0); MCHC 34.3 g/dL (28.0-37.0); MCV 87.8 fL (80.0-100.0); MPV 11.1 fl. (7.2-11.1); RDW-CV 15.1 % (10.5-14.5); WBC 14.7 thou/uL (4.0-11.0)
[2017-05-18 05:23] LABS: CALCIUM 8.6 mg/dL (8.5-10.1); CREATININE 1.5 mg/dL (0.6-1.3); MAGNESIUM 1.7 mg/dL (1.8-2.4); PHOSPHORUS* 1.9 mg/dL (2.5-4.9); POTASSIUM 4.6 mmol/L (3.5-5.1)
[2017-05-18 05:29] LABS: BE 2.6 mmol/L (-2 to +3); HCO3 26.3 mmol/L (22.0-26.0); PCO2 36.9 mmHg (35.0-45.0); PO2 98.8 mmHg (75.0-100.0); pH 7.471 (7.340-7.450)
[2017-05-18 16:44] LABS: HEMATOCRIT 22.7 % (37.0-47.0); HEMOGLOBIN 7.8 gm/dL (12.0-15.0); MCH 30.6 pg (26.0-34.0); MCHC 34.4 g/dL (28.0-37.0); MCV 88.9 fL (80.0-100.0); MPV 11.4 fl. (7.2-11.1); RBC 2.55 mil/uL (4.20-5.00); RDW-CV 14.8 % (10.5-14.5); WBC 10.5 thou/uL (4.0-11.0)
[2017-05-18 17:08] LABS: CREATININE 1.9 mg/dL (0.6-1.3); MAGNESIUM 1.7 mg/dL (1.8-2.4); PHOSPHORUS* 2.9 mg/dL (2.5-4.9); POTASSIUM 4.3 mmol/L (3.5-5.1)
[2017-05-19] VITALS (60 sets, daily range): BP systolic 89–128; BP diastolic 52–74
[2017-05-19 00:32] LABS: HEMATOCRIT 23.6 % (37.0-47.0); HEMOGLOBIN 8.2 gm/dL (12.0-15.0); MCH 30.8 pg (26.0-34.0); MCHC 34.5 g/dL (28.0-37.0); MCV 89.3 fL (80.0-100.0); MPV 11.1 fl. (7.2-11.1); RBC 2.64 mil/uL (4.20-5.00); RDW-CV 15.1 % (10.5-14.5); WBC 10.6 thou/uL (4.0-11.0)
[2017-05-19 04:26] LABS: CALCIUM 8.3 mg/dL (8.5-10.1); POTASSIUM 4.7 mmol/L (3.5-5.1)
[2017-05-19 04:33] LABS: BE -0.6 mmol/L (-2 to +3); HCO3 23.4 mmol/L (22.0-26.0); PCO2 35.5 mmHg (35.0-45.0); PO2 109.5 mmHg (75.0-100.0); pH 7.437 (7.340-7.450)
[2017-05-19 04:41] LABS: CREATININE 2.9 mg/dL (0.6-1.3)
[2017-05-19 04:54] LABS: HEMOGLOBIN 8.3 gm/dL (12.0-15.0)
[2017-05-19 05:03] LABS: HEMATOCRIT 23.7 % (37.0-47.0); MCH 31.2 pg (26.0-34.0); MCHC 34.8 g/dL (28.0-37.0); MCV 89.9 fL (80.0-100.0); MPV 11.6 fl. (7.2-11.1); RBC 2.64 mil/uL (4.20-5.00); RDW-CV 15.1 % (10.5-14.5); WBC 11.3 thou/uL (4.0-11.0)
[2017-05-19 20:59] LABS: CALCIUM 8.1 mg/dL (8.5-10.1); CREATININE 2.6 mg/dL (0.6-1.3); MAGNESIUM 1.9 mg/dL (1.8-2.4); PHOSPHORUS* 3.9 mg/dL (2.5-4.9); POTASSIUM 4.7 mmol/L (3.5-5.1)
[2017-05-20] VITALS (47 sets, daily range): BP systolic 97–144; BP diastolic 57–78
[2017-05-20 02:33] LABS: HEMATOCRIT 20.1 % (37.0-47.0); MCHC 34.5 g/dL (28.0-37.0); MPV 11.6 fl. (7.2-11.1); RBC 2.23 mil/uL (4.20-5.00); RDW-CV 15.1 % (10.5-14.5); WBC 7.5 thou/uL (4.0-11.0)
[2017-05-20 02:44] LABS: HEMOGLOBIN 6.9 gm/dL (12.0-15.0)
[2017-05-20 02:48] LABS: CALCIUM 7.9 mg/dL (8.5-10.1); CREATININE 2.4 mg/dL (0.6-1.3); MAGNESIUM 1.7 mg/dL (1.8-2.4); POTASSIUM 4.7 mmol/L (3.5-5.1)
[2017-05-20 04:52] LABS: HEMATOCRIT 20.1 % (37.0-47.0)
[2017-05-20 15:18] LABS: ABSOLUTE BASOPHILS 0.1 thou/uL (0.0-0.2); ABSOLUTE EOSINOPHILS 0.5 thou/uL (0.0-0.7); ABSOLUTE LYMPHOCYTES 1.1 thou/uL (0.8-5.3); ABSOLUTE MONOCYTES 0.5 thou/uL (0.0-1.2); BASOPHILS 1.4 %; EOSINOPHILS 6.5 %; HEMOGLOBIN 7.5 gm/dL (12.0-15.0); LYMPHOCYTES 14.8 %; MCH 30.7 pg (26.0-34.0); MCV 90.1 fL (80.0-100.0); MONOCYTES 7.1 %; MPV 10.9 fl. (7.2-11.1); NUCLEATED RBCS 0 /100WBC; PLATELET COUNT* 66 thou/uL (150-400); POLYS 70.2 %; RBC 2.44 mil/uL (4.20-5.00); RDW-CV 15.1 % (10.5-14.5); WBC 7.2 thou/uL (4.0-11.0)
[2017-05-20 19:19] LABS: CALCIUM 7.8 mg/dL (8.5-10.1); CREATININE 2.9 mg/dL (0.6-1.3); MAGNESIUM 1.9 mg/dL (1.8-2.4); PHOSPHORUS* 4.3 mg/dL (2.5-4.9); POTASSIUM 5.1 mmol/L (3.5-5.1)
[2017-05-21] VITALS (67 sets, daily range): BP systolic 84–161; BP diastolic 46–90
[2017-05-21 01:49] LABS: CALCIUM 8.2 mg/dL (8.5-10.1); CREATININE 2.7 mg/dL (0.6-1.3); MAGNESIUM 1.9 mg/dL (1.8-2.4); POTASSIUM 5.4 mmol/L (3.5-5.1)
[2017-05-21 04:50] LABS: HEMATOCRIT 22.5 % (37.0-47.0); HEMOGLOBIN 7.8 gm/dL (12.0-15.0); MCH 31.4 pg (26.0-34.0); MCHC 34.8 g/dL (28.0-37.0); MCV 90.3 fL (80.0-100.0); MPV 11.2 fl. (7.2-11.1); RBC 2.49 mil/uL (4.20-5.00); RDW-CV 15.3 % (10.5-14.5)
[2017-05-21 09:45] LABS: TOTAL BILIRUBIN 1.8 mg/dL (<0.1-1.0)
[2017-05-21 11:07] LABS: ALBUMIN 1.9 g/dL (3.4-5.0); TOTAL BILIRUBIN 1.8 mg/dL (<0.1-1.0); TOTAL PROTEIN 5.9 g/dL (6.4-8.2)
[2017-05-21 11:11] LABS: DIRECT BILIRUBIN 0.9 mg/dL (<0.1-0.3)
[2017-05-21 13:08] LABS: HEMATOCRIT 20.2 % (37.0-47.0); MCH 31.1 pg (26.0-34.0); MCHC 33.8 g/dL (28.0-37.0); MPV 11.2 fl. (7.2-11.1); RBC 2.19 mil/uL (4.20-5.00); RDW-CV 17.5 % (10.5-14.5); WBC 8.6 thou/uL (4.0-11.0)
[2017-05-21 13:11] LABS: HEMOGLOBIN 6.8 gm/dL (12.0-15.0)
[2017-05-21 13:16] LABS: CALCIUM 7.9 mg/dL (8.5-10.1); CREATININE 3.9 mg/dL (0.6-1.3); MAGNESIUM 2.1 mg/dL (1.8-2.4); PHOSPHORUS* 4.9 mg/dL (2.5-4.9)
[2017-05-21 13:17] LABS: POTASSIUM 6.1 mmol/L (3.5-5.1)
[2017-05-21 19:13] LABS: HEMATOCRIT 23.6 % (37.0-47.0); HEMOGLOBIN 8.2 gm/dL (12.0-15.0)
[2017-05-21 19:27] LABS: CALCIUM 8.1 mg/dL (8.5-10.1); CREATININE 3.2 mg/dL (0.6-1.3); MAGNESIUM 2.1 mg/dL (1.8-2.4); PHOSPHORUS* 4.4 mg/dL (2.5-4.9); POTASSIUM 5.6 mmol/L (3.5-5.1)
[2017-05-22] VITALS (21 sets, daily range): BP systolic 98–144; BP diastolic 54–101
[2017-05-22 02:09] LABS: CALCIUM 8.2 mg/dL (8.5-10.1); CREATININE 2.9 mg/dL (0.6-1.3); PHOSPHORUS* 4.1 mg/dL (2.5-4.9); POTASSIUM 5.1 mmol/L (3.5-5.1)
[2017-05-22 06:27] LABS: HEMATOCRIT 23.5 % (37.0-47.0); MCHC 34.3 g/dL (28.0-37.0); MCV 90.3 fL (80.0-100.0); MPV 11.3 fl. (7.2-11.1); RBC 2.6 mil/uL (4.20-5.00); RDW-CV 15.2 % (10.5-14.5); WBC 9.2 thou/uL (4.0-11.0)
[2017-05-22 06:35] LABS: ALBUMIN 1.7 g/dL (3.4-5.0); CREATININE 2.6 mg/dL (0.6-1.3); PHOSPHORUS* 3.5 mg/dL (2.5-4.9); POTASSIUM 4.3 mmol/L (3.5-5.1)
[2017-05-22 07:46] LABS: CALCIUM 7.8 mg/dL (8.5-10.1); CREATININE 2.6 mg/dL (0.6-1.3); POTASSIUM 4.4 mmol/L (3.5-5.1)
[2017-05-22 10:13] LABS: BE 0.8 mmol/L (-2 to +3); HCO3 24.4 mmol/L (22.0-26.0); PCO2 34.2 mmHg (35.0-45.0); PO2 97.4 mmHg (75.0-100.0); pH 7.471 (7.340-7.450)
[2017-05-22 11:33] LABS: HEMATOCRIT 23.2 % (37.0-47.0); HEMOGLOBIN 7.9 gm/dL (12.0-15.0)
[2017-05-22 11:42] LABS: ALBUMIN 1.7 g/dL (3.4-5.0); CALCIUM 8.1 mg/dL (8.5-10.1); CREATININE 2.6 mg/dL (0.6-1.3); DIRECT BILIRUBIN 0.7 mg/dL (<0.1-0.3); MAGNESIUM 1.9 mg/dL (1.8-2.4); PHOSPHORUS* 3.4 mg/dL (2.5-4.9); POTASSIUM 4.2 mmol/L (3.5-5.1); TOTAL BILIRUBIN 1.1 mg/dL (<0.1-1.0); TOTAL PROTEIN 5.9 g/dL (6.4-8.2)
--- NOTE | 2017-05-22 17:47 | CON ---
[address] [address] CONSULTATION Name: DANIELLE BALL Room: [address] IN M.R.#: [id number] Admission: 05/11/17 Attend Phys: Avni Chowdhury, Discharge: 06/07/17 Date of : 60 Report #: [id number] THIS REPORT FOR: //name// CC: [facility] physician/PCP Avni Chowdhury DICTATED BY: Camila London [facility] DATE OF SERVICE: 05/14/2017 Do not have a PCP noted on chart. Please note at the time of this dictation, the patient was seen and physically examined by myself. REASON FOR CONSULTATION: Elevated LFTs. HISTORY OF PRESENT ILLNESS: This is a 57-year-old female presented to the emergency room after being discharged from [facility] after a couple of days in which she was in the hospital for pyelonephritis in which she received Rocephin and was sent home on Cipro. Shortly taking one dose of the Cipro after she got home, she began to develop shock-like symptoms and was brought to the ER and then subsequently became unresponsive. Since being admitted to the emergency room, she has required 5 units of FFP due to an INR that was greater than 18 as well as a PT of greater than 200 at that time. Her liver functions test, total bili went up to 10.9, alk phos was at 175, ALT was up to 11,779 and AST was up to 9563, all of those were noted on 05/13. It was also noted by hematology that she likely was having hemolytic anemia probably related to the Rocephin or her first dose of Cipro. This is a 57-year-old female who presented with multiorgan failure and hypotension due to sepsis. She has renal failure, respiratory failure, on vent; elevated liver enzymes and bilirubin due to shock liver, anemia, DIC, and UTI. The patient at this time is off of pressor. She also had significant coagulopathy with INR of 18. This has since resolved and her INR is 1.5 after receiving 5 units of FFP. At this time, we would continue to monitor her hemoglobin and liver function tests. We believe that her liver function tests slowly will downtrend and will go back to normal. If her hemoglobin drops below 7, we will recommend transfusion. As far as feeding, per nursing staff the patient has high residuals of 200. I would stop tube feeding and concern TPN. We will reevaluate the patient tomorrow. ALLERGIES: ROCEPHIN and CIPRO. MEDICATIONS [place]: [place] [address] CONSULTATION Name: DANIELLE BALL Room: [address] IN M.R.#: [id number] Admission: 05/11/17 Attend Phys: Avni Chowdhury, Discharge: 06/07/17 Date of : 60 Report #: [id number] PAST MEDICAL HISTORY: Recent UTI with pyelo in the hospital. PAST SURGICAL HISTORY: Cholecystectomy and hernia repair. FAMILY HISTORY: Negative for any GI or female cancers, hypertension. SOCIAL HISTORY: Negative for any alcohol, tobacco or illegal drug use at this time. REVIEW OF SYSTEMS: Twelve-point review of systems is essentially negative except what is mentioned in the HPI. PHYSICAL EXAMINATION: VITAL SIGNS: Temperature 37.2, pulse 89, respirations 17, and blood pressure 91/55. HEART: Regular rate and rhythm. LUNGS: Diminished, but clear. ABDOMEN: Soft, positive bowel sounds in all 4 quadrants with no masses or tenderness noted. NEUROLOGIC: The patient is sedated and on the ventilator as well as dialysis. LABORATORY DATA: Hemoglobin is 8.3, hematocrit is 24.6, white count is 26.5, and platelets 68 at presently. Sodium 132, potassium 4, chloride 92, CO2 of 28, BUN is 20, creatinine 3.3, GFR is 14, and a glucose of 189. Today. LFTs, total bili down to 7.8, alk phos is 186, ALT is 2107, and AST is 3565. INR now is 1.5 with a PT of 18.3. Yesterday, LDH was 6931 and had been greater than 12,[address] of the abdomen and pelvis that was done on admission showed small cyst noted on the liver and some splenomegaly, otherwise essentially negative. IMPRESSION: 1. Shock liver, improving. 2. Hemolytic anemia. 3. Thrombocytopenia. 4. Renal failure. 5. Disseminated intravascular coagulation. 6. Urinary tract infection. PLAN: 1. Monitor for overt bleeding. 2. LFTs are down trending. 3. Continue to monitor PT and INR. 4. We will continue to follow. 5. We will continue with her famotidine b.i.d. as well. [address] [address] CONSULTATION Name: DANIELLE BALL Room: M.228-P DIS IN M.R.#: [id number] Admission: 05/11/17 Attend Phys: Avni Chowdhury, Discharge: 06/07/17 Date of : 60 Report #: [id number] Thank you for allowing us to participate in this patient's care. Please do not hesitate to call with any questions in regard to this consult. <ELECTRONICALLY SIGNED> By: Romana Hammond MD 05/22/17 1747 1255 [id number] Hammond MD /nt
[2017-05-22 22:41] LABS: HEMATOCRIT 24.7 % (37.0-47.0); HEMOGLOBIN 8.5 gm/dL (12.0-15.0)
[2017-05-23] VITALS (15 sets, daily range): BP systolic 95–143; BP diastolic 55–77
[2017-05-23 04:32] LABS: ABSOLUTE BASOPHILS 0.1 thou/uL (0.0-0.2); ABSOLUTE EOSINOPHILS 0.1 thou/uL (0.0-0.7); ABSOLUTE LYMPHOCYTES 1.4 thou/uL (0.8-5.3); ABSOLUTE MONOCYTES 1.2 thou/uL (0.0-1.2); ABSOLUTE NEUTROPHILS 7.4 thou/uL (1.6-8.1); EOSINOPHILS 0.9 %; HEMATOCRIT 27.1 % (37.0-47.0); HEMOGLOBIN 9.1 gm/dL (12.0-15.0); MCH 30.3 pg (26.0-34.0); MCHC 33.7 g/dL (28.0-37.0); MCV 89.9 fL (80.0-100.0); MONOCYTES 11.6 %; MPV 10.6 fl. (7.2-11.1); NUCLEATED RBCS 0 /100WBC; PLATELET COUNT* 150 thou/uL (150-400); POLYS 72.5 %; RBC 3.01 mil/uL (4.20-5.00); WBC 10.3 thou/uL (4.0-11.0)
[2017-05-23 04:56] LABS: CALCIUM 8.2 mg/dL (8.5-10.1); CREATININE 3.5 mg/dL (0.6-1.3); MAGNESIUM 2.1 mg/dL (1.8-2.4); POTASSIUM 5.2 mmol/L (3.5-5.1); TOTAL BILIRUBIN 1.2 mg/dL (<0.1-1.0); TOTAL PROTEIN 6.4 g/dL (6.4-8.2)
[2017-05-23 09:11] LABS: BE -0.6 mmol/L (-2 to +3); HCO3 23.7 mmol/L (22.0-26.0); PCO2 37.4 mmHg (35.0-45.0); PO2 89.2 mmHg (75.0-100.0)
[2017-05-23 14:37] LABS: BE 3.6 mmol/L (-2 to +3); PCO2 36.4 mmHg (35.0-45.0); PO2 95.4 mmHg (75.0-100.0); pH 7.488 (7.340-7.450)
[2017-05-24] VITALS (12 sets, daily range): BP systolic 86–147; BP diastolic 39–69
[2017-05-24 04:56] LABS: HEMATOCRIT 23.5 % (37.0-47.0); HEMOGLOBIN 7.9 gm/dL (12.0-15.0); MCH 30.3 pg (26.0-34.0); MCHC 33.6 g/dL (28.0-37.0); MCV 90.4 fL (80.0-100.0); MPV 10.4 fl. (7.2-11.1); RBC 2.6 mil/uL (4.20-5.00); RDW-CV 16.2 % (10.5-14.5)
[2017-05-24 05:17] LABS: ALBUMIN 1.9 g/dL (3.4-5.0); CALCIUM 7.6 mg/dL (8.5-10.1); CREATININE 3.9 mg/dL (0.6-1.3); TOTAL BILIRUBIN 1.3 mg/dL (<0.1-1.0); TOTAL PROTEIN 5.9 g/dL (6.4-8.2)
[2017-05-25] VITALS (12 sets, daily range): BP systolic 98–135; BP diastolic 40–77
[2017-05-25 03:40] LABS: HEMATOCRIT 21.7 % (37.0-47.0); HEMOGLOBIN 7.4 gm/dL (12.0-15.0); MCH 30.8 pg (26.0-34.0); MCHC 34.3 g/dL (28.0-37.0); MCV 89.8 fL (80.0-100.0); MPV 9.5 fl. (7.2-11.1); RBC 2.41 mil/uL (4.20-5.00); RDW-CV 16.7 % (10.5-14.5); WBC 7.7 thou/uL (4.0-11.0)
[2017-05-25 04:20] LABS: CALCIUM 7.5 mg/dL (8.5-10.1); CREATININE 4.2 mg/dL (0.6-1.3); POTASSIUM 3.8 mmol/L (3.5-5.1); TOTAL BILIRUBIN 1.2 mg/dL (<0.1-1.0)
[2017-05-26] VITALS (15 sets, daily range): BP systolic 119–161; BP diastolic 67–95
[2017-05-26 06:02] LABS: ALBUMIN 2.1 g/dL (3.4-5.0); CALCIUM 7.5 mg/dL (8.5-10.1); CREATININE 6.3 mg/dL (0.6-1.3); TOTAL BILIRUBIN 1.1 mg/dL (<0.1-1.0); TOTAL PROTEIN 6.6 g/dL (6.4-8.2)
[2017-05-26 07:21] LABS: URINE BILIRUBIN NEGATIVE (Negative); URINE BLOOD 3+ (Negative); URINE CLARITY CLEAR; URINE COLOR YELLOW; URINE GLUCOSE-RANDOM NEGATIVE (Negative); URINE KETONES NEGATIVE (Negative); URINE LEUKOCYTES-REFLEX NEGATIVE (Negative); URINE NITRITE-REFLEX NEGATIVE (Negative); URINE PROTEIN 1+ (Negative); URINE SPECIFIC GRAVITY 1.015 (1.005-1.030); URINE UROBILINOGEN 0.2 E.U./dl (0.2-1.0)
[2017-05-26 07:30] LABS: BACTERIA-REFLEX 1-9 Few /HPF (None Seen); CASTS None Seen /LPF (None Seen); CRYSTALS None Seen /LPF (None Seen); SQUAMOUS 0-3 Few /LPF (0-3); URINE RBC >20 Many /HPF (0-2); URINE WBC-REFLEX 0-5 Rare /HPF (0-5)
[2017-05-26 14:38] LABS: % SATURATION 9 % (20-39); IRON 18 ug/dL (50-175)
[2017-05-27] VITALS (12 sets, daily range): BP systolic 116–152; BP diastolic 58–92
[2017-05-27 04:39] LABS: HEMATOCRIT 20.8 % (37.0-47.0); MCH 30.7 pg (26.0-34.0); MCHC 33.7 g/dL (28.0-37.0); MCV 91.2 fL (80.0-100.0); MPV 8.8 fl. (7.2-11.1); NUCLEATED RBCS 0 /100WBC; PLATELET COUNT* 211 thou/uL (150-400); RBC 2.28 mil/uL (4.20-5.00); RDW-CV 17.3 % (10.5-14.5); WBC 6.5 thou/uL (4.0-11.0)
[2017-05-27 05:40] LABS: CALCIUM 7.5 mg/dL (8.5-10.1); CREATININE 7.6 mg/dL (0.6-1.3); POTASSIUM 3.6 mmol/L (3.5-5.1)
[2017-05-27 06:36] LABS: ABSOLUTE BASOPHILS 0.3 thou/uL (0.0-0.2); ABSOLUTE EOSINOPHILS 0.3 thou/uL (0.0-0.7); ABSOLUTE LYMPHOCYTES 0.8 thou/uL (0.8-5.3); ABSOLUTE MONOCYTES 0.7 thou/uL (0.0-1.2); ABSOLUTE NEUTROPHILS 4.5 thou/uL (1.6-8.1); PLATELET ESTIMATE ADEQUATE
[2017-05-27 06:40] LABS: ANISOCYTOSIS 1+; HYPOCHROMASIA Occasional; POIKILOCYTOSIS 1+; POLYCHROMASIA Occasional
--- NOTE | 2017-05-27 20:28 | S ---
[facility] [address] [id number] SURGICAL PATH RPT PROCEDURE Name: BITA PEREIRA Room: [address] IN M.R.#: [id number] Admission: 05/11/17 Date of : 60 Discharge: 06/07/17 Report #: [id number] Path Case #: [id number] PATHOLOGY REPORT COLLECTION DATE: 05/27/2017 RECEIVED DATE: 05/27/2017 SUBMITTING PHYS: Dr. Monico Bedoya OTHER PHYS: Dr. Avni Chowdhury SPECIMEN(S) RECEIVED: A.Peripheral smear * * * * * * * * * * * * FINAL DIAGNOSIS: Peripheral blood smear: - Severe normocytic anemia and occasional hypogranular neutrophils. (See comment). COMMENT: Overall the peripheral blood has severe normocytic anemia and occasional hypogranular neutrophils. The WBC and platelet counts are within the normal reference ranges. The etiology of the findings is unclear based entirely on slide review. Potential causes of normocytic anemia include anemia of chronic disease, treated and/or compensated vitamin and mineral deficiencies, acute blood loss, dilutional and primary bone marrow disorders. The clinical significance of the hypogranular neutrophils is unclear. Correlation with clinical history and additional laboratory data is recommended. (CLW:lindsey; 05/27/2017) PATHOLOGIST: Meryl Roth M.D. REPORT ELECTRONICALLY SIGNED BY: Meryl Roth M.D. DATE/TIME: 05/27/2017 20:28 * * * * * * * * * * * * MICROSCOPIC DESCRIPTION: CBC Data (05/27/17): WBC 6,500 /uL, RBC 2.28, hemoglobin 7.0 g/dL, hematocrit 20.8%, MCV 91.2 fL, MCH 30.7 pg, MCHC 33.7 g/dL, RDW 17.3%. Platelet count 211,000 /uL. Manual white blood cell differential: segs 69%, lymphs 12%, monos 10%, eos 5% and basos 4%. Peripheral Blood Smear: Cytomorphological examination of the Reddy's stained peripheral blood smear confirms the provided data. Red blood cells show severe normocytic anemia with mild anisocytosis. No significant poikilocytosis is identified. No schistocytes or microspherocytes are seen. White blood cells are predominantly segmented neutrophils and are without significant left shift. Occasional hypogranular neutrophils are noted. Lymphocytes are predominantly small, [place] [address] SURGICAL PATH RPT PROCEDURE Name: BITA PEREIRA Room: [address] IN [facility]#: [id number] Admission: 05/11/17 Date of : 60 Discharge: 06/07/17 Report #: [id number] Path Case #: [id number] and mature appearing with condensed chromatin and scant cytoplasm with admixed large granular lymphocytes. On scanning, no markedly atypical lymphoid cells are seen. Monocytes are mature. Platelets are adequate in number and mainly normal in morphology with rare larger platelets noted. GROSS PATHOLOGY: Received are three Reddy stained peripheral blood smears all labeled, Bita Pereira. CLINICAL HISTORY: 57 year old woman with anemia. Morphologic review of the peripheral blood smear is requested by the patient's physician. INITIAL CPT CODE(S): A; [place] Professional services performed by [facility] at [facility], [address] [place] [address]. Technical services performed by [facility] at [address] [place] [address], [address], [place] [address]. [employer] [address] [place] [address] PHONE: [phone] DIRECTOR: Jairo Huerta M.D. * * * END OF REPORT * * *
[2017-05-28 03:59] VITALS: BP 144/83
[2017-05-28 05:12] LABS: HEMATOCRIT 28.2 % (37.0-47.0); MCH 31.4 pg (26.0-34.0); MCHC 34.5 g/dL (28.0-37.0); MCV 91.3 fL (80.0-100.0); MPV 8.9 fl. (7.2-11.1); RBC 3.09 mil/uL (4.20-5.00); RDW-CV 15.5 % (10.5-14.5); WBC 6.3 thou/uL (4.0-11.0)
[2017-05-28 05:21] LABS: HEMOGLOBIN 9.7 gm/dL (12.0-15.0)
[2017-05-28 05:49] LABS: ALBUMIN 2.2 g/dL (3.4-5.0); CALCIUM 7.2 mg/dL (8.5-10.1); MAGNESIUM 1.6 mg/dL (1.8-2.4); PHOSPHORUS* 4.4 mg/dL (2.5-4.9); POTASSIUM 3.7 mmol/L (3.5-5.1); TOTAL BILIRUBIN 1.1 mg/dL (<0.1-1.0); TOTAL PROTEIN 6.4 g/dL (6.4-8.2)
[2017-05-28 05:58] LABS: CREATININE 5.7 mg/dL (0.6-1.3)
[2017-05-28 09:30] VITALS: BP 147/89
[2017-05-28 12:00] VITALS: BP 138/76
[2017-05-28 16:00] VITALS: BP 138/72
[2017-05-28 21:05] VITALS: BP 153/73
[2017-05-29] VITALS: BP 147/92
[2017-05-29 04:00] VITALS: BP 127/74
[2017-05-29 05:28] LABS: CREATININE 6.7 mg/dL (0.6-1.3)
[2017-05-29 09:30] VITALS: BP 119/76
[2017-05-29 11:36] VITALS: BP 128/77
[2017-05-29 20:00] VITALS: BP 151/77
[2017-05-30] VITALS (7 sets, daily range): BP systolic 119–148; BP diastolic 55–80
[2017-05-30 06:39] LABS: POTASSIUM 3.1 mmol/L (3.5-5.1)
[2017-05-30 06:41] LABS: CREATININE 4.9 mg/dL (0.6-1.3)
[2017-05-30 12:44] LABS: CALCIUM 7.9 mg/dL (8.5-10.1); CREATININE 5.2 mg/dL (0.6-1.3); MAGNESIUM 1.7 mg/dL (1.8-2.4)
[2017-05-30 12:49] LABS: POTASSIUM 2.9 mmol/L (3.5-5.1)
[2017-05-31 04:00] VITALS: BP 155/81
[2017-05-31 06:10] LABS: ALBUMIN 2.4 g/dL (3.4-5.0); CALCIUM 8.1 mg/dL (8.5-10.1); CREATININE 5.8 mg/dL (0.6-1.3); POTASSIUM 3.4 mmol/L (3.5-5.1); TOTAL BILIRUBIN 0.9 mg/dL (<0.1-1.0); TOTAL PROTEIN 7.2 g/dL (6.4-8.2)
[2017-05-31 08:30] VITALS: BP 114/57
[2017-05-31 09:56] LABS: HEMATOCRIT 28.1 % (37.0-47.0); HEMOGLOBIN 9.4 gm/dL (12.0-15.0); MCH 31.2 pg (26.0-34.0); MCHC 33.6 g/dL (28.0-37.0); MPV 9.8 fl. (7.2-11.1); RBC 3.02 mil/uL (4.20-5.00); RDW-CV 15.5 % (10.5-14.5); WBC 6.1 thou/uL (4.0-11.0)
[2017-05-31 12:00] VITALS: BP 128/78
[2017-05-31 16:00] VITALS: BP 143/82
[2017-05-31 20:00] VITALS: BP 122/70
[2017-06-01 00:08] VITALS: BP 132/74
[2017-06-01 04:27] VITALS: BP 127/76
[2017-06-01 05:44] LABS: ALBUMIN 2.6 g/dL (3.4-5.0); CREATININE 3.8 mg/dL (0.6-1.3); POTASSIUM 3.4 mmol/L (3.5-5.1); TOTAL PROTEIN 7.6 g/dL (6.4-8.2)
[2017-06-01 07:30] VITALS: BP 123/69
[2017-06-01 11:30] VITALS: BP 120/70
[2017-06-01 16:00] VITALS: BP 132/80
[2017-06-01 20:00] VITALS: BP 131/78
[2017-06-02 00:02] VITALS: BP 142/87
[2017-06-02 04:00] VITALS: BP 144/81
[2017-06-02 08:25] LABS: CALCIUM 7.9 mg/dL (8.5-10.1); CREATININE 4.6 mg/dL (0.6-1.3); POTASSIUM 3.7 mmol/L (3.5-5.1)
[2017-06-02 11:59] VITALS: BP 117/62
[2017-06-02 12:00] VITALS: BP 126/59
[2017-06-02 16:12] VITALS: BP 123/71
[2017-06-02 20:30] VITALS: BP 138/94
[2017-06-03 00:06] VITALS: BP 134/83
[2017-06-03 03:41] VITALS: BP 135/82
[2017-06-03 06:16] LABS: HEMOGLOBIN 9.6 gm/dL (12.0-15.0); MCH 31.1 pg (26.0-34.0); MCHC 34.2 g/dL (28.0-37.0); MPV 9.2 fl. (7.2-11.1); RBC 3.08 mil/uL (4.20-5.00); RDW-CV 14.7 % (10.5-14.5); WBC 6.1 thou/uL (4.0-11.0)
[2017-06-03 06:39] LABS: CALCIUM 7.7 mg/dL (8.5-10.1); CREATININE 4.8 mg/dL (0.6-1.3); POTASSIUM 3.2 mmol/L (3.5-5.1)
[2017-06-03 08:00] VITALS: BP 122/60
[2017-06-03 10:53] LABS: ALBUMIN 2.6 g/dL (3.4-5.0); MAGNESIUM 1.1 mg/dL (1.8-2.4); PHOSPHORUS* 3.5 mg/dL (2.5-4.9)
[2017-06-03 12:19] VITALS: BP 129/79
[2017-06-03 17:26] VITALS: BP 141/84
[2017-06-03 20:00] VITALS: BP 133/85
[2017-06-04] VITALS: BP 137/86
[2017-06-04 04:49] VITALS: BP 122/70
[2017-06-04 05:27] LABS: HEMATOCRIT 28.5 % (37.0-47.0); HEMOGLOBIN 9.8 gm/dL (12.0-15.0); MCH 31.2 pg (26.0-34.0); MCHC 34.2 g/dL (28.0-37.0); MCV 91.1 fL (80.0-100.0); MPV 9.3 fl. (7.2-11.1); RBC 3.13 mil/uL (4.20-5.00); RDW-CV 14.7 % (10.5-14.5); WBC 6.5 thou/uL (4.0-11.0)
[2017-06-04 06:11] LABS: ALBUMIN 2.4 g/dL (3.4-5.0); CALCIUM 7.2 mg/dL (8.5-10.1); CREATININE 4.5 mg/dL (0.6-1.3); TOTAL BILIRUBIN 0.8 mg/dL (<0.1-1.0); TOTAL PROTEIN 7.3 g/dL (6.4-8.2)
[2017-06-04 06:13] LABS: MAGNESIUM 0.9 mg/dL (1.8-2.4); POTASSIUM 2.7 mmol/L (3.5-5.1)
[2017-06-04 08:30] VITALS: BP 126/75
[2017-06-04 11:30] VITALS: BP 110/56
[2017-06-04 15:30] VITALS: BP 117/75
[2017-06-04 20:21] VITALS: BP 118/72
[2017-06-04 20:56] LABS: MAGNESIUM 1.7 mg/dL (1.8-2.4); POTASSIUM 3.2 mmol/L (3.5-5.1)
[2017-06-05] VITALS (7 sets, daily range): BP systolic 98–132; BP diastolic 63–78
[2017-06-05 05:35] LABS: HEMATOCRIT 26.9 % (37.0-47.0); HEMOGLOBIN 9.3 gm/dL (12.0-15.0); MCH 31.3 pg (26.0-34.0); MCHC 34.5 g/dL (28.0-37.0); MCV 90.7 fL (80.0-100.0); MPV 8.5 fl. (7.2-11.1); RBC 2.97 mil/uL (4.20-5.00); RDW-CV 14.7 % (10.5-14.5); WBC 6.1 thou/uL (4.0-11.0)
[2017-06-05 05:53] LABS: CALCIUM 7.6 mg/dL (8.5-10.1); CREATININE 3.8 mg/dL (0.6-1.3); MAGNESIUM 1.6 mg/dL (1.8-2.4); POTASSIUM 3.6 mmol/L (3.5-5.1)
--- NOTE | 2017-06-05 09:11 | EEG ---
[address] [address] EEG STUDY REPORT Name: STELLA JUSTENDANIELLE OLIVIER Room: [address] IN M.R.#: [id number] Admission: 05/11/17 Attend Phys: Avni Chowdhury, Discharge: 06/07/17 Date of : 60 Report #: [id number] THIS REPORT FOR: //name// CC: FAM physician/PCP Avni Chowdhury DATE OF SERVICE: 05/23/2017 This patient is being evaluated for altered mental status as well as seizure. The EEG was done by placing the electrodes by standard 10/20 system of electrode placement. Both referential and sequential montages were used for recording. Background activity goes up to about 8-9 Hz and 30 microvolt. It is still intermixed with theta range slowing on both sides. Photic stimulation was unremarkable. This patient became drowsy and that is associated with bilateral slowing. A lot of eye movement artifact is present. IMPRESSION: This patient's EEG is intermixed with theta range slowing on both sides, but is much improved. No active epileptiform activity was noticed. Thank you very much for this referral. <ELECTRONICALLY SIGNED> By: Roberto Jones MD 06/05/17 0911 1856 [id number] Jones MD /nt
--- NOTE | 2017-06-05 09:11 | EEG ---
[address] [address] EEG STUDY REPORT Name: STELLA RODRIGUEZDANIELLE Room: [address] IN M.R.#: [id number] Admission: 05/11/17 Attend Phys: Avni Chowdhury, Discharge: 06/07/17 Date of : 60 Report #: [id number] THIS REPORT FOR: //name// CC: FAM physician/PCP Avni Chowdhury DATE OF SERVICE: 05/21/2017 This patient is being evaluated for the possibility of seizure. The patient has underlying encephalopathy. Background activity in this patient's EEG does go up to about 7 Hz and 30 microvolt. It goes slower in between and that appeared to be sleep-wake cycle the best I can tell, but it may be just slow on the patient. Photic stimulation is unremarkable. In spite of the history, this patient has no active epileptiform activity in the patient's EEG. IMPRESSION: This patient's EEG is slow and poorly formed that would be consistent with a diagnosis of encephalopathy. However, no active epileptiform activity was noticed during this record. Thank you very much for this referral. <ELECTRONICALLY SIGNED> By: Roberto Jones MD 06/05/17 0911 0837 [id number] Jones MD /nt
--- NOTE | 2017-06-05 09:11 | EEG ---
[address] [address] EEG STUDY REPORT Name: DANIELLE BALL Room: [address] IN M.R.#: [id number] Admission: 05/11/17 Attend Phys: Avni Chowdhury, Discharge: 06/07/17 Date of : 60 Report #: [id number] THIS REPORT FOR: //name// CC: FAM physician/PCP Avni Chowdhury DATE OF SERVICE: 05/20/2017 This patient's EEG was done by placing the electrodes by standard 10/20 system of electrode placement. Both referential and sequential montages were used for recording. Background activity in this patient's EEG is about 6-7 Hz and 30 microvolt. The EEG is monotonous and continues to be the same. Photic stimulation is unremarkable. Throughout the record, no active epileptiform activity was noticed. IMPRESSION: This is an abnormal EEG because it is disorganized and poorly formed. That is a nonspecific abnormality, which can occur with encephalopathy, effect of psychotropic medication, dementia, etc. No active epileptiform activity was noticed during this record. Clinical correlation is recommended. Thank you very much for this referral. <ELECTRONICALLY SIGNED> By: Roberto Jones MD 06/05/17 0911 1441 [id number] Jones MD /nt
--- NOTE | 2017-06-05 09:11 | EEG ---
[address] [address] EEG STUDY REPORT Name: DANIELLE BALL Room: [address] IN M.R.#: [id number] Admission: 05/11/17 Attend Phys: Avni Chowdhury, Discharge: 06/07/17 Date of : 60 Report #: [id number] THIS REPORT FOR: //name// CC: FAM physician/PCP Avni Chowdhury DATE OF SERVICE: 05/28/2017 This patient is being evaluated as a followup of the seizure. EEG was done by placing the electrodes by standard 10/20 system of electrode placement. Both referential and sequential montages were used for recording. Background activity in this patient's EEG is about 7 Hz and 30 microvolt. The patient is asleep during the large portion of this EEG and that demonstrated bilaterally symmetrical sleep spindle and vertex sharp waves. Photic stimulation is unremarkable. Throughout the record, no active epileptiform activity was noticed. IMPRESSION: This patient's EEG demonstrates bilateral slowing. That is a nonspecific finding, which can occur with encephalopathy, effect of psychotropic medication, dementia, etc. No active epileptiform activity was noticed during this record. Thank you very much for this referral. <ELECTRONICALLY SIGNED> By: Roberto Jones MD 06/05/17 0911 1352 1445Roberto Jones MD /nt
--- NOTE | 2017-06-05 16:02 | OP ---
[address] [address] OPERATIVE REPORT Name: DANIELLE BALL Room: [address] IN M.R.#: [id number] Admission: 05/11/17 Attend Phys: Avni Chowdhury, Discharge: 06/07/17 Date of : 60 Report #: [id number] THIS REPORT FOR: //name// CC: [facility] physician/PCP Avni Chowdhury DICTATED BY: Devin King DO DATE OF SERVICE: 05/29/2017 SURGEON: Fer Graham DO COSURGEON: David King, PGY3. ANESTHESIA: Local anesthetic with monitored anesthesia care. COMPLICATIONS: None. ESTIMATED BLOOD LOSS: Less than 5 mL. CONDITION AT THE END OF THE PROCEDURE: Stable. INDICATIONS: Please see the patient's medical record, but in short, the patient was recently admitted with acute hemolytic anemia and required hemodialysis. She had been previously using a temporary dialysis catheter, which was placed in the left internal jugular vein and it was requested that this catheter be exchanged for a tunneled dialysis catheter for long-term usage. DESCRIPTION OF PROCEDURE: The patient was taken back to the endovascular suite and placed on the operating table in the supine position. There was a subsequent induction of monitored anesthesia care using Versed and fentanyl. Wires were passed through the previously placed temporary dialysis catheter. The right neck and chest and shoulder were prepped and draped in normal sterile fashion. The previously placed catheter was also prepped into the field. The patient was given perioperative antibiotics prior to initiating the procedure. Wires were then passed through each of the ports. A long Bentson wire was used and passed into the inferior vena cava under fluoroscopic guidance. The temporary dialysis catheter was then removed and pressure was held just inferior to the insertion site. The inner dilator was then passed over the wires to dilate our tract after a small ashok incision was made at the skin level using 11 blade scalpel. This allowed us to dilate our tract. We then threaded our hemodialysis catheter over each of the wires ensuring to be in contact with the wires at all times. Once we had distal control of the wires, the catheter was then advanced to the level of the atrial caval junction, which was seen on fluoroscopic guidance. We then estimated the level of our chest wall incision. We made a small ashok incision on the skin. Each port [place] [address] OPERATIVE REPORT Name: DANIELLE BALL Room: [address]#: [id number] Admission: 05/11/17 Attend Phys: Avni Chowdhury, Discharge: 06/07/17 Date of : 60 Report #: [id number] and the dialysis catheter was then cut to length with each of the limb, having an adequate amount of excessive length at this point. A tunneler was then used and brought out through our incision site on the neck. We also used local anesthetic in this area to numb the tract as well as the insertion site on the left chest. The tunneler was then passed anterior to the clavicle and just lateral to the catheter itself. A sheath cover and pants were then placed on the tunneler, which was subsequently connected to each port. We then pulled the 2 ports in a retrograde fashion tunneling the sheath and the cuff just above our chest wall incision. At this point, the 2 ports were then connected to our final apparatus. These were then aspirated, which was done so easily. It was then flushed with saline solution and then subsequently packed with 2.5 mL of heparinized solution, which was 1000 per mL of heparin. The end caps were then placed and the neck incision was closed using a subcuticular U-stitch of 3-0 Monocryl ensuring not to injure the catheter. We then placed skin glue over this incision site as well. The catheter was then sewn onto the chest wall using a U-stitch of the same 3-0 Monocryl. Subsequent sterile dressings, which consisted of a Tegaderm on top of the skin where the catheter would be resting as well as a 4 x 4 and Tegaderm were placed over the catheter insertion site. The patient tolerated the procedure well without any difficulties or complications. She will be taken back to her room when she is allowed to recover. All counts were correct x 2 at the end of procedure. Dr. Graham was present for the entirety of this procedure. Start time of our procedure was 1518 and end time was 1536. We used approximately 1 of Versed and 50 mcg of fentanyl for sedation for this procedure. Thank you for allowing me to participate in the care of this patient. Please do not hesitate to contact with any questions or concerns. <ELECTRONICALLY SIGNED> By: Fer Graham DO 06/05/17 1602 1615 [id number] Graham DO /nt
[2017-06-06 03:34] VITALS: BP 114/76
[2017-06-06 05:05] LABS: HEMATOCRIT 28.1 % (37.0-47.0); HEMOGLOBIN 9.4 gm/dL (12.0-15.0); MCH 30.6 pg (26.0-34.0); MCHC 33.6 g/dL (28.0-37.0); MPV 8.9 fl. (7.2-11.1); RBC 3.08 mil/uL (4.20-5.00); RDW-CV 15.2 % (10.5-14.5)
[2017-06-06 05:18] LABS: ALBUMIN 2.5 g/dL (3.4-5.0); CALCIUM 8.4 mg/dL (8.5-10.1); CREATININE 3.4 mg/dL (0.6-1.3); MAGNESIUM 2.1 mg/dL (1.8-2.4); PHOSPHORUS* 4.6 mg/dL (2.5-4.9); POTASSIUM 3.8 mmol/L (3.5-5.1)
[2017-06-06 07:30] VITALS: BP 110/63
[2017-06-06 11:09] VITALS: BP 110/63
[2017-06-06 16:43] VITALS: BP 126/75
[2017-06-06 20:00] VITALS: BP 120/69
[2017-06-06 23:25] VITALS: BP 110/68
[2017-06-07 03:49] VITALS: BP 126/76
[2017-06-07 04:42] LABS: HEMATOCRIT 28.1 % (37.0-47.0); HEMOGLOBIN 9.5 gm/dL (12.0-15.0); MCH 30.9 pg (26.0-34.0); MCHC 33.8 g/dL (28.0-37.0); MCV 91.4 fL (80.0-100.0); MPV 9.2 fl. (7.2-11.1); RBC 3.08 mil/uL (4.20-5.00); RDW-CV 15.2 % (10.5-14.5); WBC 5.8 thou/uL (4.0-11.0)
[2017-06-07 05:12] LABS: ALBUMIN 2.5 g/dL (3.4-5.0); CALCIUM 8.2 mg/dL (8.5-10.1); CREATININE 3.2 mg/dL (0.6-1.3); MAGNESIUM 1.5 mg/dL (1.8-2.4); PHOSPHORUS* 4.9 mg/dL (2.5-4.9); POTASSIUM 3.4 mmol/L (3.5-5.1)
[2017-06-07 12:00] VITALS: BP 135/80
[2017-06-07 12:31] VITALS: BP 135/80
[2017-06-07] MEDS ORDERED: TESSALON PERLE100 M1 PO (13:40)
[2017-06-07] MEDS ORDERED: KEPPRA 500 MG500 M1 PO (13:41)
[2017-06-07] MEDS ORDERED: SYNTHROID25 MCG PO (13:42)
[2017-06-07] MEDS ORDERED: REGLAN 10 MG TA10 MG PO (13:43)
[2017-06-07] MEDS ORDERED: METAMUCIL1 EAC1 PO (13:44)
[2017-06-07] MEDS ORDERED: VITAMIN B-1100 M1 PO (13:45)
--- NOTE | 2017-06-28 20:10 | EEG ---
[address] [address] EEG STUDY REPORT Name: DANIELLE BALL Room: [address] IN M.R.#: [id number] Admission: 05/11/17 Attend Phys: Avni Chowdhury, Discharge: 06/07/17 Date of : 60 Report #: [id number] THIS REPORT FOR: //name// CC: AVNI Chowdhury DATE OF SERVICE: 06/07/2017 This patient has encephalopathy and also had some seizures. EEG is being done to further evaluate that. Background activity in this patient's EEG is about 8 Hz and 40 microvolt. The patient went to sleep that was associated with bilaterally symmetrical sleep spindle and vertex sharp waves. Photic stimulation is unremarkable. Throughout the record, no active epileptiform activity was noticed. IMPRESSION: This is a moderately abnormal EEG because it is intermixed with theta range slowing on both sides. That is a nonspecific abnormality, which can occur with encephalopathy, effect of psychotropic medication, dementia. I did not see any active epileptiform activity. Thank you very much for this referral. <ELECTRONICALLY SIGNED> By: Roberto Jones MD 06/28/172009 1723 1814Pyovani Jones MD /nt
== END 2017-06-07 16:54 | disposition home health service (06) | DRG 870 ==
LOC: M.ERS 19:32 → M.2W 23:39 → M.ICU 23:39 → M.2W 23:39 → M.TBA-ER 23:39 → M.ICU 05-12 00:09 → M.2W 05-27 19:07
PROVIDERS: Emergency Medicine; Internal Medicine; Internal Medicine Critical Care Medicine; Internal Medicine Hematology & Oncology; Internal Medicine Nephrology; Internal Medicine Pulmonary Disease; Psychiatry & Neurology Neuromuscular Medicine; Specialist; Surgery; ADMIT Family Medicine
PROC: 30233R1 Transfusion of Nonautologous Platelets into Peripheral Vein, Percutaneous Approach (ICD-10-PCS; principal; 2017-05-11)
PROC: 30233N1 Transfusion of Nonautologous Red Blood Cells into Peripheral Vein, Percutaneous Approach (ICD-10-PCS; principal; 2017-05-11)
PROC: 30233K1 Transfusion of Nonautologous Frozen Plasma into Peripheral Vein, Percutaneous Approach (ICD-10-PCS; 2017-05-11)
PROC: 30233L1 Transfusion of Nonautologous Fresh Plasma into Peripheral Vein, Percutaneous Approach (ICD-10-PCS; 2017-05-11)
PROC: 0BH17EZ Insertion of Endotracheal Airway into Trachea, Via Natural or Artificial Opening (ICD-10-PCS; 2017-05-12)
PROC: 5A1955Z Respiratory Ventilation, Greater than 96 Consecutive Hours (ICD-10-PCS; 2017-05-12)
PROC: 06HN33Z Insertion of Infusion Device into Left Femoral Vein, Percutaneous Approach (ICD-10-PCS; 2017-05-12)
PROC: 5A1D70Z Performance of Urinary Filtration, Intermittent, Less than 6 Hours Per Day (ICD-10-PCS; 2017-05-13)
PROC: 05HF33Z Insertion of Infusion Device into Left Cephalic Vein, Percutaneous Approach (ICD-10-PCS; 2017-05-20)
PROC: B54NZZA Ultrasonography of Left Upper Extremity Veins, Guidance (ICD-10-PCS; 2017-05-20)
PROC: 5A1D90Z Performance of Urinary Filtration, Continuous, Greater than 18 hours Per Day (ICD-10-PCS; 2017-05-20)
PROC: 5A1D70Z Performance of Urinary Filtration, Intermittent, Less than 6 Hours Per Day (ICD-10-PCS; 2017-05-27)
PROC: 5A1D70Z Performance of Urinary Filtration, Intermittent, Less than 6 Hours Per Day (ICD-10-PCS; 2017-05-29)
PROC: B5141ZA Fluoroscopy of Left Jugular Veins using Low Osmolar Contrast, Guidance (ICD-10-PCS; 2017-05-29)
PROC: 05HN33Z Insertion of Infusion Device into Left Internal Jugular Vein, Percutaneous Approach (ICD-10-PCS; 2017-05-29)
PROC: 5A1D70Z Performance of Urinary Filtration, Intermittent, Less than 6 Hours Per Day (ICD-10-PCS; 2017-05-31)
DX: A41.50 Gram-negative sepsis, unspecified (principal); K72.00 Acute and subacute hepatic failure without coma; D65 Disseminated intravascular coagulation [defibrination syndrome]; J96.01 Acute respiratory failure with hypoxia; G93.41 Metabolic encephalopathy; J18.1 Lobar pneumonia, unspecified organism; N39.0 Urinary tract infection, site not specified; T80.910A Acute hemolytic transfusion reaction, unspecified incompatibility, initial encounter; N17.9 Acute kidney failure, unspecified; I31.3 Pericardial effusion (noninflammatory); D59.9 Acquired hemolytic anemia, unspecified; D68.9 Coagulation defect, unspecified; E46 Unspecified protein-calorie malnutrition; D59.0 Drug-induced autoimmune hemolytic anemia; J98.11 Atelectasis; G72.81 Critical illness myopathy; R65.20 Severe sepsis without septic shock; Z90.49 Acquired absence of other specified parts of digestive tract; D64.9 Anemia, unspecified; E87.6 Hypokalemia; T68.XXXA Hypothermia, initial encounter; R00.0 Tachycardia, unspecified; K21.9 Gastro-esophageal reflux disease without esophagitis; T36.8X5A Adverse effect of other systemic antibiotics, initial encounter; E80.6 Other disorders of bilirubin metabolism; T37.8X5A Adverse effect of other specified systemic anti-infectives and antiparasitics, initial encounter; R59.9 Enlarged lymph nodes, unspecified; E87.5 Hyperkalemia; R16.1 Splenomegaly, not elsewhere classified; E16.2 Hypoglycemia, unspecified; E66.01 Morbid (severe) obesity due to excess calories; I95.9 Hypotension, unspecified; E78.1 Pure hyperglyceridemia; E88.09 Other disorders of plasma-protein metabolism, not elsewhere classified; R91.1 Solitary pulmonary nodule; E83.39 Other disorders of phosphorus metabolism; E03.9 Hypothyroidism, unspecified; G40.909 Epilepsy, unspecified, not intractable, without status epilepticus; R13.10 Dysphagia, unspecified; Z82.49 Family history of ischemic heart disease and other diseases of the circulatory system; Z88.8 Allergy status to other drugs, medicaments and biological substances; Z87.891 Personal history of nicotine dependence; Z79.899 Other long term (current) drug therapy; Z68.29 Body mass index [BMI] 29.0-29.9, adult